=== PATIENT | female | born 1990 | race Caucasian/White ===

== ENCOUNTER 2019-07-09 09:27 | Emergency (ER) | payer SELFPAY ==
[2019-07-09] VITALS (7 sets, daily range): BP systolic 110–121; BP diastolic 77–83; PULSE 61–77; RESP 16–18; TEMP 36.8; O2SAT 98–100; BMI 22.4
--- NOTE | 2019-07-09 09:37 | W.ED.ABDPA2 ---
HPI - Abdominal Pain General: Chief Complaint: Abdominal Pain Stated Complaint: abnormal bruising/swollen abd Time Seen by Provider: 07/09/19 09:32 History of Present Illness: HPI narrative: Patient is a 28-year-old female comes to the ED with abdominal pain and bloating. Patient states that pain started about 2 days ago. She has a decreased appetite in the last 24 hours. She describes it as a dull aching pain that runs like a band across mid to lower abdomen. She rates the discomfort a 6 out of 10. Patient also has a couple small bruises on the abdomen and she is on sure on what caused those. She says her abdomen feels bloated and more firm and tense than usual. She says in the last 2 days she cannot button her pants anymore. Patient says she also has some bruising on her thighs and she describes herself as bruising easily. She patient has had her tubes tied about 5 years ago and has had normal menstrual cycles recently. Denies any excessive bleeding, vaginal discharge or cramping with last menstrual cycle. Last period was a couple weeks ago. She denies any trauma to the abdomen recently. Denies any fever, chills, nausea, vomiting, flank pain, dysuria, hematuria, diarrhea, constipation or blood in stool. Associated Symptoms: Reports bloating and other; Denies chills, constipation, diarrhea, dysuria, fever(s), hematochezia, hematuria, nausea and vomiting Related Data: Date of Last Menstrual Period: 06/25/19 Review of Systems Const: Reports: change in appetite (decreased appetite iin the last 24 hours.); Denies: fever(s), chills or fatigue Eyes: Denies: change in vision or eye discomfort ENMT: Denies: throat pain, odynophagia, nasal discharge or nasal congestion Card: Denies: chest pain, palpitations, edema, swelling of feet/ankles, dyspnea on exertion or orthopnea Resp: Denies: dyspnea, productive cough or non-productive cough GI: Reports: abdominal pain, bloating and other; Denies: nausea, vomiting, diarrhea, constipation or hematochezia : Denies: flank pain, dysuria or hematuria Musc: Denies: neck pain, back pain or extremity swelling Skin/Breast: Denies: rash or new lesions Neuro: Denies: headache(s), numbness in extremities or weakness in extremities PFSH ED PFSH: Social History Smoking and tobacco status: never smoked Female Reproductive History: Date of last menstrual period: 06/25/19 Physical Exam Const: COMMON NORMALS: no acute distress, patient oriented x3, healthy appearing and alert GENERAL APPEARANCE: cooperative, comfortable and well hydrated HENMT: COMMON NORMALS: normocephalic HEAD & SCALP: normocephalic MOUTH: Normal oral and palatal mucosa present THROAT: posterior oropharynx normal and uvula midline Eye: COMMON NORMALS: Equal, round and reactive pupils present, conjunctivae normal and no scleral icterus CONJUNCTIVA: Yes conjunctivae normal PUPIL: Yes Equal, round and reactive pupils present Neck/C-Spine: COMMON NORMALS: supple GENERAL: Yes normal visual inspection Resp: COMMON NORMALS: normal respiratory effort, No retractions, No use of accessory muscles and clear to auscultation bilaterally AUSCULTATION: clear to auscultation bilaterally Cardio: COMMON NORMALS: regular rate, regular rhythm, S1 normal heart sound present, S2 normal heart sound present, No gallops present (Cardio), No clicks present (Cardio), No murmurs present (Cardio) and Peripheral pulses 2+ throughout RATE: regular rate RHYTHM: regular rhythm HEART SOUNDS: S1 normal heart sound present and S2 normal heart sound present PERIPHERAL PULSES: Peripheral pulses 2+ throughout GI: COMMON NORMALS: no masses AUSCULTATION: Yes normoactive bowel sounds PALPATION: Yes Firmness to palpation present (GI) (Firmness on right lower quadrant) and Yes Tenderness to palpation present (GI) (Mild tenderness) Details: LLQ and RLQ : COMMON NORMALS: Yes no CVA tenderness BLADDER/KIDNEY EXAM: Yes no CVA tenderness Back/Pelvis: COMMON NORMALS: no CVA tenderness Extremity: COMMON NORMALS: normal to inspection and no pedal edema Neuro: COMMON NORMALS: patient oriented x3 and moves all extremities SENSORIUM/ORIENTATION: Yes alert GAIT: Yes Normal gait present Skin: GENERAL SKIN EXAM: dry skin and ecchymosis (2 bruises on the upper right arm older almost healed and 2 small bruises on abdomen) Course Vital Signs: Vital signs: Vital Signs Temperature 98.2 F 07/09/19 09:35 Pulse Rate 61 07/09/19 13:36 Respiratory Rate 18 05/30/20 13:36 Blood Pressure 116/83 07/09/19 13:36 Pulse Oximetry 98 07/09/19 13:36 MDM - Abdominal Pain MDM Narrative: Medical decision making narrative: Patient is a 28-year-old female comes to the ED with abdominal pain. Physical exam-patient is a 28-year-old female who is showing no signs of acute distress and sitting comfortably on the exam bilaterally in the room. Patient had some abdominal tenderness in the right and left lower quadrants of the abdomen. CBC, CMP, lipase and urinalysis were all normal and unremarkable. hCG serum test was negative. CT of the abdomen showed no acute findings. Patient was diagnosed with abdominal pain of unknown origin. She was told to follow-up with her PCP in 7 to 10 days for reevaluation. Patient understood and agreed with plan. Lab Data: Attestation: I reviewed the patient's lab results. Labs: Lab Results 07/09/19 07/09/19 07/09/19 Range/Units 10:10 10:14 10:14 WBC 6.0 (4.0-10.0) 10^3/ uL RBC 4.49 (4.1-5.3) 10^6/u L Hgb 12.6 (11.5-15.3) g/dL Hct 40.0 (37.0-47.0) % MCV 89.1 (81-99) fL MCH 28.1 (28.0-34.0) pg MCHC 31.5 (30.0-36.0) g/dL RDW 12.0 L (12.1-15.1) % Plt Count 386 (130-400) 10^3/c mm MPV 9.3 (7.4-10.4) fL Neut % (Auto) 63.8 % Lymph % (Auto) 26.1 % Lander % (Auto) 7.3 % Eos % (Auto) 1.8 % Baso % (Auto) 0.8 % Neut # (Auto) 3.8 (1.8-7.7) 10^3/u L Lymph # (Auto) 1.6 (0.8-4.8) 10^3/u L Lander # (Auto) 0.4 (0.2-0.9) 10^3/u L Eos # (Auto) 0.1 (0.0-0.8) 10^3/u L Baso # (Auto) 0.1 (0.0-0.1) 10^3/u L Nucleated RBC % (a uto) 0 % Nucleated RBCs # 0.0 /100WBC PT (10.5-13.3) SECO NDS INR (0.8-1.2) APTT (23.9-36.7) SECO NDS Sodium 139 (136-145) mmol/L Potassium 3.9 (3.5-5.1) mmol/L Chloride 102 (98-107) mmol/L Carbon Dioxide 26 (22-29) mmol/L Anion Gap 14.9 (5-19) BUN 10 (6-20) mg/dL Creatinine 0.7 (0.5-0.9) mg/dL GFR Calculation 98.9 (90-130) mL/min Glucose 89 (65-115) mg/dL Calculated Osmolal ity 283 L (285-295) mOsm/k g Calcium 9.4 (8.5-10.5) mg/dL Total Bilirubin 0.4 (0.15-1.2) mg/dL AST 17 (0-32) U/L ALT 12 (0-33) U/L Alkaline Phosphata se 59 (35-105) IU/L Total Protein 7.9 (6.6-8.7) g/dL Albumin 5.0 (3.5-5.2) g/dL Globulin 2.9 (1.3-4.6) g/dL Lipase 40 (13-60) U/L HCG, Qual (Negative) Urine Color Yellow (Yellow) Urine Appearance Clear (CLEAR) Urine pH 8 H (5-7) Ur Specific Gravit y 1.010 (1.005-1.030) Urine Protein Neg (Negative) Urine Glucose (UA) Norm (Normal) Urine Ketones Negative (Negative) Urine Blood Neg (Negative) Urine Nitrate Negative (Negative) Urine Bilirubin Neg (NEGATIVE) Prot Sulfosalicyli c Acd Negative (Negative) Urine Urobilinogen Norm (Negative) mg/dL Ur Leukocyte Jami ase Negative (Negative) Urine RBC None (0-2) /hpf Urine WBC None (0-5) /hpf Ur Squamous Epith Cells 15-25 H (0-5) Urine Bacteria Trace (NONE) 07/09/19 07/09/19 Range/Units 10:14 10:14 WBC (4.0-10.0) 10^3/ uL RBC (4.1-5.3) 10^6/u L Hgb (11.5-15.3) g/dL Hct (37.0-47.0) % MCV (81-99) fL MCH (28.0-34.0) pg MCHC (30.0-36.0) g/dL RDW (12.1-15.1) % Plt Count (130-400) 10^3/c mm MPV (7.4-10.4) fL Neut % (Auto) % Lymph % (Auto) % Lander % (Auto) % Eos % (Auto) % Baso % (Auto) % Neut # (Auto) (1.8-7.7) 10^3/u L Lymph # (Auto) (0.8-4.8) 10^3/u L Lander # (Auto) (0.2-0.9) 10^3/u L Eos # (Auto) (0.0-0.8) 10^3/u L Baso # (Auto) (0.0-0.1) 10^3/u L Nucleated RBC % (a uto) % Nucleated RBCs # /100WBC PT 13.90 H (10.5-13.3) SECO NDS INR 1.04 (0.8-1.2) APTT 29.5 (23.9-36.7) SECO NDS Sodium (136-145) mmol/L Potassium (3.5-5.1) mmol/L Chloride (98-107) mmol/L Carbon Dioxide (22-29) mmol/L Anion Gap (5-19) BUN (6-20) mg/dL Creatinine (0.5-0.9) mg/dL GFR Calculation (90-130) mL/min Glucose (65-115) mg/dL Calculated Osmolal ity (285-295) mOsm/k g Calcium (8.5-10.5) mg/dL Total Bilirubin (0.15-1.2) mg/dL AST (0-32) U/L ALT (0-33) U/L Alkaline Phosphata se (35-105) IU/L Total Protein (6.6-8.7) g/dL Albumin (3.5-5.2) g/dL Globulin (1.3-4.6) g/dL Lipase (13-60) U/L HCG, Qual Negative (Negative) Urine Color (Yellow) Urine Appearance (CLEAR) Urine pH (5-7) Ur Specific Gravit y (1.005-1.030) Urine Protein (Negative) Urine Glucose (UA) (Normal) Urine Ketones (Negative) Urine Blood (Negative) Urine Nitrate (Negative) Urine Bilirubin (NEGATIVE) Prot Sulfosalicyli c Acd (Negative) Urine Urobilinogen (Negative) mg/dL Ur Leukocyte Jami ase (Negative) Urine RBC (0-2) /hpf Urine WBC (0-5) /hpf Ur Squamous Epith Cells (0-5) Urine Bacteria (NONE) Imaging Data ^: CT Abd/Pel: Attestation: I personally reviewed and interpreted this imaging study as follows: Radiologist's impression: [place] [id number] CT Scan Report Signed Patient: Sarita Carcamo Unit #: [id number] : 1990 Age/Sex: 28 / F ADM Date: 07/09/19 Loc: ER Room/Bed: Attending Dr: Ordering Provider/Ordering MD: David Chavez Date of Service: 07/09/19 Procedure(s): CT abdomen pelvis w con* [id number] Accession Number(s): [id number] Report Number: [id number] PROCEDURE INFORMATION: Exam: CT Abdomen And Pelvis With Contrast Exam date and time: 07/09/2019 10:49 AM Age: 28 years old Clinical indication: Abdominal pain; Generalized; Additional info: Abdominal pain, decreased appetite TECHNIQUE: Imaging protocol: Computed tomography of the abdomen and pelvis with intravenous contrast. Radiation optimization: All CT scans at this facility use at least one of these dose optimization techniques: automated exposure control; mA and/or kV adjustment per patient size (includes targeted exams where dose is matched to clinical indication); or iterative reconstruction. Contrast material: 95; Contrast volume: 95 ml; Contrast route: RT AC; COMPARISON: CT Abdomen/Pelvis Renal [id number] 09/02/2016 5:27 PM RADIATION DOSE METRICS: Total DLP: 587.26 mGy-cm FINDINGS: Lungs: Trace dependent left basilar airspace disease. Liver: Poorly characterized 9 mm nodular hypodense lesion in the left hepatic lobe, suspicious for hemangioma. Delayed post-contrast imaging can be performed for improved characterization if clinically indicated. Gallbladder and bile ducts: No cholelithiasis or biliary ductal dilatation. Pancreas: No pancreatic mass or ductal dilatation. Spleen: No splenomegaly. Adrenals: Unremarkable adrenals. Kidneys and ureters: Normal renal morphology. No hydronephrosis. Stomach and bowel: No significant small bowel dilatation. Prominent stool. Diverticula, without pericolonic inflammation. Appendix: Nonvisualization of the appendix. Intraperitoneal space: No significant free fluid. Vasculature: Normal caliber of the abdominal aorta. Lymph nodes: Subcentimeter lymph nodes. Bladder: Unremarkable bladder. Reproductive: Follicular change in the ovaries. Bones/joints: Subcentimeter pelvic bone islands. CT/CT abdomen pelvis w con* [id number] IMPRESSION: 1. No acute inflammatory process in the abdomen or pelvis. 2. Additional findings as described above. Radiation Dose CTDIVOL = (mGy): DLP = 587.26 (mGy-cm) Dictated By: Mau Vallejo MD Signed By: Mau Vallejo MD Signed Date/Time: 07/09/19 1235 DD/ 1234 Discharge Plan Discharge Patient Disposition: Home, Self-Care Clinical Impression: Abdominal pain of unknown cause Condition: Stable Prescriptions: No Action No Known Home Medications RF: 0 Discharge Orders: Discharge Order (Routine); Ordered 07/09/19 Ordered By: David Chavez Referrals: Davide Jacob APN [Family Provider] - Discharge Diet: Advance as tolerated Discharge Activity: Increase activity as tolerated Patient Instructions: Abdominal Pain (ED) Activity Restrictions/Additional Instructions: Follow-up with your PCP in 7 to 10 days for reevaluation. Take Tylenol or ibuprofen for any pain. Advance diet as tolerated to see if food has any direct cause in symptoms. Let your PCP know that abdominal CT scan was performed and showed likely benign cyst on liver. Talk with PCP about further possible work-up as needed. Stand Alone Forms: Work/School Release Discharge Date/Time: 07/09/19 13:34 Coding Level of Care Code ED Literary Writer for Chg Fwd Exam Comprehensive
[2019-07-09] MEDS: ondansetron 2 mg/ML SDV 2 mL 4 MG IVP (10:17)
[2019-07-09] MEDS: morphine 4 mg/mL SDV 1 mL 2 MG IVP (10:17)
[2019-07-09] MEDS: sodium chloride 0.9% 1,000 ML 999 ML IV (10:17)
[2019-07-09 10:30] LABS: Basophils # 0.1 10^3/uL (0.0-0.1); Basophils % 0.8 %; Eosinophils # 0.1 10^3/uL (0.0-0.8); Eosinophils % 1.8 %; Hemoglobin 12.6 g/dL (11.5-15.3); Lymphocytes # 1.6 10^3/uL (0.8-4.8); Lymphocytes % 26.1 %; Mean Corpuscular HGB Conc 31.5 g/dL (30.0-36.0); Mean Corpuscular Hemoglobin 28.1 pg (28.0-34.0); Mean Corpuscular Volume 89.1 fL (81-99); Mean Platelet Volume 9.3 fL (7.4-10.4); Monocytes # 0.4 10^3/uL (0.2-0.9); Monocytes % 7.3 %; Neutrophils # 3.8 10^3/uL (1.8-7.7); Neutrophils % 63.8 %; Nucleated Red Blood Cells % 0 %; Platelet Count 386 10^3/cmm (130-400); Red Blood Count 4.49 10^6/uL (4.1-5.3)
[2019-07-09 10:37] LABS: HCG, Serum Qual Negative (Negative); INR 1.04 (0.8-1.2); Partial Thromboplastin Time 29.5 SECONDS (23.9-36.7)
--- NOTE | 2019-07-09 10:44 | CTR_ITS ---
PROCEDURE INFORMATION: Exam: CT Abdomen And Pelvis With Contrast Exam date and time: 07/09/2019 10:49 AM Age: 28 years old Clinical indication: Abdominal pain; Generalized; Additional info: Abdominal pain, decreased appetite TECHNIQUE: Imaging protocol: Computed tomography of the abdomen and pelvis with intravenous contrast. Radiation optimization: All CT scans at this facility use at least one of these dose optimization techniques: automated exposure control; mA and/or kV adjustment per patient size (includes targeted exams where dose is matched to clinical indication); or iterative reconstruction. Contrast material: 95; Contrast volume: 95 ml; Contrast route: RT AC; COMPARISON: CT Abdomen/Pelvis Renal [id number] 09/02/2016 5:27 PM RADIATION DOSE METRICS: Total DLP: 587.26 mGy-cm FINDINGS: Lungs: Trace dependent left basilar airspace disease. Liver: Poorly characterized 9 mm nodular hypodense lesion in the left hepatic lobe, suspicious for hemangioma. Delayed post-contrast imaging can be performed for improved characterization if clinically indicated. Gallbladder and bile ducts: No cholelithiasis or biliary ductal dilatation. Pancreas: No pancreatic mass or ductal dilatation. Spleen: No splenomegaly. Adrenals: Unremarkable adrenals. Kidneys and ureters: Normal renal morphology. No hydronephrosis. Stomach and bowel: No significant small bowel dilatation. Prominent stool. Diverticula, without pericolonic inflammation. Appendix: Nonvisualization of the appendix. Intraperitoneal space: No significant free fluid. Vasculature: Normal caliber of the abdominal aorta. Lymph nodes: Subcentimeter lymph nodes. Bladder: Unremarkable bladder. Reproductive: Follicular change in the ovaries. Bones/joints: Subcentimeter pelvic bone islands. CT/CT abdomen pelvis w con* [id number] IMPRESSION: 1. No acute inflammatory process in the abdomen or pelvis. 2. Additional findings as described above. Radiation Dose CTDIVOL = (mGy): DLP = 587.26 (mGy-cm)
[2019-07-09 10:46] LABS: Alanine Aminotransferase 12 U/L (0-33); Alkaline Phosphatase 59 IU/L (35-105); Anion Gap 14.9 (5-19); Aspartate Amino Transferase 17 U/L (0-32); Blood Urea Nitrogen 10 mg/dL (6-20); Calcium 9.4 mg/dL (8.5-10.5); Carbon Dioxide 26 mmol/L (22-29); Chloride 102 mmol/L (98-107); Globulin 2.9 g/dL (1.3-4.6); Glomerular Filtration Rate 98.9 mL/min (90-130); Glucose 89 mg/dL (65-115); Lipase 40 U/L (13-60); Osmolality Calculated 283 mOsm/kg (285-295); Potassium 3.9 mmol/L (3.5-5.1); Sodium 139 mmol/L (136-145); Total Bilirubin 0.4 mg/dL (0.15-1.2); Total Protein 7.9 g/dL (6.6-8.7)
[2019-07-09 10:54] LABS: Bilirubin Urine Neg (NEGATIVE); Blood Urine Neg (Negative); Glucose Urine UA Norm (Normal); Ketones Urine Negative (Negative); Nitrate Urine Negative (Negative); Protein Urine Neg (Negative); Sulfosalicylic Acid Urine Negative (Negative); Urine Appearance Clear (CLEAR); Urine Color Yellow (Yellow); pH Urine 8 (5-7)
[2019-07-09 10:55] LABS: Leukocyte Esterase Urine Negative (Negative); Urobilinogen Urine Norm (Negative)
[2019-07-09 10:56] LABS: Add Urine Culture? No; Bacteria Urine TRACE; Squamous Epithelial Cell Urine 15-25 (0-5)
[2019-07-09] MEDS: iohexol 300 mg/mL 100 mL Btl IV (11:31)
[2019-07-09] MEDS: morphine 4 mg/mL SDV 1 mL IVP (12:10)
== END 2019-07-09 13:34 | disposition home or self-care (01) ==
PROVIDERS: Emergency Provider Physician Assistant; Family Provider Nurse Practitioner Family
DX: R10.9 Unspecified abdominal pain (principal)
CPT/HCPCS: 12345; 74177; 80053; 81001; 83690; 84703; 85025; 85610; 85730; 96361; 96374; 96375; 96376; 99283; J2270; J2405; J7030; Q9967

== ENCOUNTER → 2019-07-11 16:30 | Outpatient (BNVA) | payer SELFPAY | PROVIDERS: Family Provider Nurse Practitioner Family; Visit Provider Nurse Practitioner Family | DX: R53.83 Other fatigue (principal); R23.8 Other skin changes; R10.9 Unspecified abdominal pain; K76.9 Liver disease, unspecified; E04.9 Nontoxic goiter, unspecified | CPT/HCPCS: 80053; 82306; 82607; 83735; 84439; 84443; 84481; 85025; 85240; 85245; 85246; 86308 ==

== ENCOUNTER 2019-07-12 11:00 | Emergency (ER) | payer SELFPAY ==
[2019-07-12 11:21] VITALS: BP 111/77; PULSE 78; RESP 16; TEMP 36.7; O2SAT 99; BMI 23.3
--- NOTE | 2019-07-12 12:09 | W.ED.ABDPA2 ---
HPI - Abdominal Pain General: Chief Complaint: Abdominal Pain Stated Complaint: LOWER ABD PAIN Time Seen by Provider: 07/12/19 11:47 History of Present Illness: HPI narrative: Was seen in the ED a few days ago for generalized abdominal pain. Discharged home with no definite diagnosis as evaluation was unremarkable. Today, she developed LLQ pain, severe. Unable to walk from the pain. No history of diverticulitis. Has had an jossue MD elicited complaint: abdominal pain Pertinent past history: none Onset (ago): hour(s) (5) Pain Consistency: constant Location: LLQ Severity: severe Quality: stabbing Radiation: none Migration to: no migration Exacerbating factors: nothing Relieving factors: nothing Associated Symptoms: Reports anorexia and nausea; Denies change in bowel habits, chills, dysuria, fever(s), hematochezia, hematemesis and fecal incontinence Related Data: Date of Last Menstrual Period: 06/29/19 Review of Systems General: Reports: 10 or more systems reviewed and unremarkable except in HPI and below Const: Denies: fever(s), chills or body aches ENMT: Denies: throat pain, enlarged tonsils, odynophagia, hoarseness, mouth pain or swelling of lips/tongue Card: Denies: palpitations, irregular heart rhythm, edema or swelling of feet/ankles Resp: Denies: dyspnea, productive cough or non-productive cough GI: Reports: nausea; Denies: hematemesis, fecal incontinence, change in bowel habits or hematochezia : Denies: dysuria Neuro: Denies: headache(s), numbness in extremities or weakness in extremities Endo: Denies: polyuria, polydipsia or tired all the time [facility] ED PFSH: Family History Father Hypertension Social History Smoking and tobacco status: never smoked Female Reproductive History: Date of last menstrual period: 06/29/19 Physical Exam Const: COMMON NORMALS: no acute distress, average body habitus, patient oriented x3, no limitations, healthy appearing, alert and well nourished HENMT: COMMON NORMALS: normocephalic, atraumatic and moist oral mucous membranes HEAD & SCALP: normocephalic and atraumatic Neck/C-Spine: COMMON NORMALS: no meningeal signs and no JVD Chest: COMMONS NORMALS: normal inspection of the chest and normal palpation of entire chest wall Resp: COMMON NORMALS: normal respiratory effort, No retractions, No use of accessory muscles, clear to auscultation bilaterally and percussion normal AUSCULTATION: clear to auscultation bilaterally PERCUSSION: percussion normal Cardio: COMMON NORMALS: no JVD, regular rate, regular rhythm, S1 normal heart sound present, S2 normal heart sound present, No gallops present (Cardio), No clicks present (Cardio), No murmurs present (Cardio), No rub (Cardio) and Peripheral pulses 2+ throughout RATE: regular rate RHYTHM: regular rhythm HEART SOUNDS: S1 normal heart sound present and S2 normal heart sound present PERIPHERAL PULSES: Peripheral pulses 2+ throughout GI: COMMON NORMALS: Normal to inspection, nondistended, normoactive bowel sounds present, Soft to palpation, non-tender, No hepatosplenomegaly present, no masses and no bruits PALPATION: Yes Soft to palpation, Yes Tenderness to palpation present (GI) Details: LLQ and Yes No hepatosplenomegaly present : BLADDER/KIDNEY EXAM: Yes CVA tenderness on the left Back/Pelvis: GENERAL BACK: Yes CVA tenderness Extremity: COMMON NORMALS: normal to inspection, full ROM, capillary refill normal, no calf tenderness and no pedal edema Neuro: COMMON NORMALS: patient oriented x3 SENSORIUM/ORIENTATION: Yes alert MENINGEAL SIGNS: Yes no meningeal signs Skin: COMMON NORMALS: no rashes or lesions noted, no wounds, turgor normal, no jaundice, no petechiae and no mottling GENERAL SKIN EXAM: no rashes or lesions noted and turgor normal Course Reevaluation(s): Reevaluation #1: Discussed her lab and imaging findings with her. She has CT findings of acute diverticulitis. The pain is consistent with diverticulitis, so we will give intravenous antibiotics here in the emergency department and then discharge her home. White cell count is normal, she is no vomiting, so I think she will be okay with oral antibiotics. She voiced understanding and is in agreement with the plan. Time: 15:03 Vital Signs: Vital signs: Vital Signs Temperature 98.1 F 07/12/19 11:21 Pulse Rate 68 07/12/19 17:18 Respiratory Rate 17 07/12/19 17:18 Blood Pressure 118/74 07/12/19 17:18 Pulse Oximetry 98 07/12/19 17:18 MDM - Abdominal Pain MDM Narrative: Medical decision making narrative: 28-year-old female patient with acute diverticulitis. It is uncomplicated. She is discharged home on oral ciprofloxacin and metronidazole. She has no vomiting and no CT scan findings of complications from the diverticulitis. She is advised to return for any concerns especially if her symptoms get worse. Medical Records: Attestation: I reviewed the patient's medical records. Lab Data: Attestation: I reviewed the patient's lab results. Labs: Lab Results 07/12/19 07/12/19 07/12/19 Range/Units 11:47 11:47 12:11 WBC 6.1 (4.0-10.0) 10^3/ uL RBC 4.10 (4.1-5.3) 10^6/u L Hgb 11.9 (11.5-15.3) g/dL Hct 36.8 L (37.0-47.0) % MCV 89.8 (81-99) fL MCH 29.0 (28.0-34.0) pg MCHC 32.3 D (30.0-36.0) g/dL RDW 11.9 L (12.1-15.1) % Plt Count 343 (130-400) 10^3/c mm MPV 9.6 (7.4-10.4) fL Neut % (Auto) 62.9 % Lymph % (Auto) 25.5 % [place] % (Auto) 8.8 % Eos % (Auto) 2.1 % Baso % (Auto) 0.5 % Neut # (Auto) 3.8 (1.8-7.7) 10^3/u L Lymph # (Auto) 1.6 (0.8-4.8) 10^3/u L [place] # (Auto) 0.5 (0.2-0.9) 10^3/u L Eos # (Auto) 0.1 (0.0-0.8) 10^3/u L Baso # (Auto) 0.0 (0.0-0.1) 10^3/u L Nucleated RBC % (a uto) 0 % Nucleated RBCs # 0.0 /100WBC Sodium 138 (136-145) mmol/L Potassium 3.9 (3.5-5.1) mmol/L Chloride 102 (98-107) mmol/L Carbon Dioxide 26 (22-29) mmol/L Anion Gap 13.9 (5-19) BUN 8 (6-20) mg/dL Creatinine 0.7 (0.5-0.9) mg/dL GFR Calculation 98.9 (90-130) mL/min Glucose 100 (65-115) mg/dL Calculated Osmolal ity 282 L (285-295) mOsm/k g Lactate (0.5-2.2) mmol/L Calcium 9.9 (8.5-10.5) mg/dL Total Bilirubin 0.5 (0.15-1.2) mg/dL AST 14 (0-32) U/L ALT 10 (0-33) U/L Alkaline Phosphata se 54 (35-105) IU/L C-Reactive Protein 1.3 (0.0-4.9) mg/L Total Protein 7.7 (6.6-8.7) g/dL Albumin 4.6 (3.5-5.2) g/dL Globulin 3.1 (1.3-4.6) g/dL Lipase 30 (13-60) U/L HCG, Qual Negative (Negative) Urine Color (Yellow) Urine Appearance (CLEAR) Urine pH (5-7) Ur Specific Gravit y (1.005-1.030) Urine Protein (Negative) Urine Glucose (UA) (Normal) Urine Ketones (Negative) Urine Blood (Negative) Urine Nitrate (Negative) Urine Bilirubin (NEGATIVE) Urine Urobilinogen (Negative) mg/dL Ur Leukocyte Jami ase (Negative) Urine Opiates Scre en (Negative) ng/mL Ur Barbiturates Sc reen (Negative) ng/mL Ur Phencyclidine S crn (Negative) ng/mL Ur Amphetamines Sc reen (Negative) ng/mL U Benzodiazepines Scrn (Negative) ng/mL Urine Cocaine Scre en (Negative) ng/mL U Marijuana (THC) Screen (Negative) ng/mL 07/12/19 07/12/19 07/12/19 Range/Units 12:11 12:11 12:30 WBC (4.0-10.0) 10^3/ uL RBC (4.1-5.3) 10^6/u L Hgb (11.5-15.3) g/dL Hct (37.0-47.0) % MCV (81-99) fL MCH (28.0-34.0) pg MCHC (30.0-36.0) g/dL RDW (12.1-15.1) % Plt Count (130-400) 10^3/c mm MPV (7.4-10.4) fL Neut % (Auto) % Lymph % (Auto) % [place] % (Auto) % Eos % (Auto) % Baso % (Auto) % Neut # (Auto) (1.8-7.7) 10^3/u L Lymph # (Auto) (0.8-4.8) 10^3/u L [place] # (Auto) (0.2-0.9) 10^3/u L Eos # (Auto) (0.0-0.8) 10^3/u L Baso # (Auto) (0.0-0.1) 10^3/u L Nucleated RBC % (a uto) % Nucleated RBCs # /100WBC Sodium (136-145) mmol/L Potassium (3.5-5.1) mmol/L Chloride (98-107) mmol/L Carbon Dioxide (22-29) mmol/L Anion Gap (5-19) BUN (6-20) mg/dL Creatinine (0.5-0.9) mg/dL GFR Calculation (90-130) mL/min Glucose (65-115) mg/dL Calculated Osmolal ity (285-295) mOsm/k g Lactate 0.7 (0.5-2.2) mmol/L Calcium (8.5-10.5) mg/dL Total Bilirubin (0.15-1.2) mg/dL AST (0-32) U/L ALT (0-33) U/L Alkaline Phosphata se (35-105) IU/L C-Reactive Protein (0.0-4.9) mg/L Total Protein (6.6-8.7) g/dL Albumin (3.5-5.2) g/dL Globulin (1.3-4.6) g/dL Lipase (13-60) U/L HCG, Qual (Negative) Urine Color Yellow (Yellow) Urine Appearance Clear (CLEAR) Urine pH 7.0 (5-7) Ur Specific Gravit y 1.005 (1.005-1.030) Urine Protein Neg (Negative) Urine Glucose (UA) Norm (Normal) Urine Ketones Negative (Negative) Urine Blood Neg (Negative) Urine Nitrate Negative (Negative) Urine Bilirubin Neg (NEGATIVE) Urine Urobilinogen Norm (Negative) mg/dL Ur Leukocyte Jami ase Negative (Negative) Urine Opiates Scre en Positive H (Negative) ng/mL Ur Barbiturates Sc reen Negative (Negative) ng/mL Ur Phencyclidine S crn Negative (Negative) ng/mL Ur Amphetamines Sc reen Negative (Negative) ng/mL U Benzodiazepines Scrn Negative (Negative) ng/mL Urine Cocaine Scre en Negative (Negative) ng/mL U Marijuana (THC) Screen Positive H (Negative) ng/mL Imaging Data ^: CT Abd/Pel: Radiologist's impression: [place] [address] CT Scan Report Signed Patient: Sarita Carcamo #: [id number] : 1990Acct#:[id number] Age/Sex: Date: 07[birth year]12[birth year] Loc: ERRoom/Bed: Attending Dr: Ordering Provider/Ordering MD: Rozina Brown MD, [facility] [place] Date of Service: 07/12/19 Procedure(s): CT abdomen pelvis w con* [id number] Accession Number(s): [id number] Report Number: [id number] WS: [id number] CT abdomen pelvis w con* [id number] REASON FOR EXAM: LLQ pain IV CONTRAST ADMINISTERED: Omnipaque 300, 95 cc. TOTAL EXAM DLP: 573.[address] scans at [facility] use at least one of these dose optimization techniques: automated exposure control; mA and/or kV adjustment per patient size (includes targeted exams where dose is matched to clinical indication); or iterative reconstruction. FINDINGS: Along the descending: There is diverticular changes with low-grade inflammatory changes suggesting diverticulitis versus panniculitis no free fluid is seen surrounding this area only peritoneal swelling is noted. In the pelvis there is follicular cyst in both ovaries but no large dominant cyst. The uterus is upper limits of normal for size. The bladder was normal and the rectosigmoid colon normal. In the upper abdomen the liver was normal the lower lungs normal and the mediastinum show no abnormalities. There is a benign cyst in the left lobe of the liver measures 9.41 mm. Stomach, spleen, aorta, inferior vena cava, and adrenal glands are all normal. The gallbladder is somewhat contracted but appears to be normal. Both kidneys show normal appearance with normal ureters no hydronephrosis no new cholelithiasis. CT/CT abdomen pelvis w con* [id number] IMPRESSION: Diverticulitis of the mid descending colon no abscess changes. Dictated By:Cole Cottrell DO Signed By:Cole Cottrell DOSigned Date/Time:07/12/19 1432 DD/ 1425 Discharge Plan Discharge Patient Disposition: Home, Self-Care Clinical Impression: Acute diverticulitis Condition: Stable Prescriptions: New ciprofloxacin HCl 500 mg tablet 500 mg PO BID Qty: 14 RF: 0 Flagyl 500 mg tablet 500 mg PO TID Qty: 21 RF: 0 [place] 5-325 mg tablet 1 tab PO Q8H PRN (Reason: pain) Qty: 12 RF: 0 Discharge Orders: Discharge Order (Routine); Ordered 07/12/19 Ordered By: Rozina Brown Referrals: Davide Jacob, VETERINARIAN EPIDEMIOLOGIST [Primary Care Provider] - 4-7 days Discharge Diet: Advance as tolerated Discharge Activity: Resume usual activity Patient Instructions: Diverticulitis (ED), Diverticulitis Diet (ED) Activity Restrictions/Additional Instructions: Return for any new or worsening symptoms. Follow-up with your primary care provider within 1 week. Take the antibiotics as prescribed. Take the pain medicine as needed. 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
[2019-07-12 12:31] LABS: Add Urine Microscopic? NO
[2019-07-12 12:32] LABS: Basophils % 0.5 %; Eosinophils # 0.1 10^3/uL (0.0-0.8); Eosinophils % 2.1 %; Hematocrit 36.8 % (37.0-47.0); Hemoglobin 11.9 g/dL (11.5-15.3); Lymphocytes # 1.6 10^3/uL (0.8-4.8); Lymphocytes % 25.5 %; Mean Corpuscular HGB Conc 32.3 g/dL (30.0-36.0); Mean Corpuscular Volume 89.8 fL (81-99); Mean Platelet Volume 9.6 fL (7.4-10.4); Monocytes # 0.5 10^3/uL (0.2-0.9); Monocytes % 8.8 %; Neutrophils # 3.8 10^3/uL (1.8-7.7); Neutrophils % 62.9 %; Nucleated Red Blood Cells % 0 %; Platelet Count 343 10^3/cmm (130-400); Red Cell Distribution Width 11.9 % (12.1-15.1); White Blood Count 6.1 10^3/uL (4.0-10.0)
[2019-07-12 12:37] LABS: Bilirubin Urine Neg (NEGATIVE); Blood Urine Neg (Negative); Glucose Urine UA Norm (Normal); Ketones Urine Negative (Negative); Leukocyte Esterase Urine Negative (Negative); Nitrate Urine Negative (Negative); Protein Urine Neg (Negative); Specific Gravity, Urine 1.005 (1.005-1.030); Urine Appearance Clear (CLEAR); Urine Color Yellow (Yellow); Urobilinogen Urine Norm (Negative)
[2019-07-12 12:39] LABS: HCG Qualitative Urine. Negative (Negative)
[2019-07-12 12:40] LABS: Alanine Aminotransferase 10 U/L (0-33); Albumin Level 4.6 g/dL (3.5-5.2); Alkaline Phosphatase 54 IU/L (35-105); Anion Gap 13.9 (5-19); Aspartate Amino Transferase 14 U/L (0-32); Blood Urea Nitrogen 8 mg/dL (6-20); C Reactive Protein 1.3 mg/L (0.0-4.9); Calcium 9.9 mg/dL (8.5-10.5); Carbon Dioxide 26 mmol/L (22-29); Chloride 102 mmol/L (98-107); Globulin 3.1 g/dL (1.3-4.6); Glomerular Filtration Rate 98.9 mL/min (90-130); Glucose 100 mg/dL (65-115); Lipase 30 U/L (13-60); Osmolality Calculated 282 mOsm/kg (285-295); Potassium 3.9 mmol/L (3.5-5.1); Sodium 138 mmol/L (136-145); Total Bilirubin 0.5 mg/dL (0.15-1.2); Total Protein 7.7 g/dL (6.6-8.7)
[2019-07-12 12:45] LABS: Amphetamines Screen Urine Negative (Negative); Barbiturates Screen Urine Negative (Negative); Benzodiazepines Screen Urine Negative (Negative); Cocaine Screen Urine Negative (Negative); Opiate Screen Urine Positive (Negative); PCP Screen Urine Negative (Negative); THC Screen Urine Positive (Negative)
[2019-07-12 12:55] LABS: Lactate (Lactic Acid level) 0.7 mmol/L (0.5-2.2)
[2019-07-12] MEDS: ketorolac 30 mg/mL INJ IVP (13:11)
--- NOTE | 2019-07-12 13:22 | CT_ITS ---
WS: [id number] CT abdomen pelvis w con* [id number] REASON FOR EXAM: LLQ pain IV CONTRAST ADMINISTERED: Omnipaque 300, 95 cc. TOTAL EXAM DLP: 573.[address] scans at [facility] use at least one of these dose optimization techniques: automat ed exposure control; mA and/or kV adjustment per patient size (includes targeted exams where dose is matched to clinical indication); or iterative reconstruction. FINDINGS: Along the descending: There is diverticular changes with low-grade inflammatory changes sug gesting diverticulitis versus panniculitis no free fluid is seen surrounding this area only peritonea l swelling is noted. In the pelvis there is follicular cyst in both ovaries but no large dominant cyst. The uterus is uppe r limits of normal for size. The bladder was normal and the rectosigmoid colon normal. In the upper abdomen the liver was normal the lower lungs normal and the mediastinum show no abnormal ities. There is a benign cyst in the left lobe of the liver measures 9.41 mm. Stomach, spleen, aorta, inferior vena cava, and adrenal glands are all normal. The gallbladder is somewhat contracted but appears to be normal. Both kidneys show normal appearance with normal ureters no hydronephrosis no new cholelithiasis. CT/CT abdomen pelvis w con* [id number] IMPRESSION: Diverticulitis of the mid descending colon no abscess changes.
[2019-07-12] MEDS: iohexol 300 mg/mL 100 mL Btl IV (14:15)
[2019-07-12] MEDS: ciprofloxacin 400 MG/200 ML PREMIX 200 MG IV (15:55)
[2019-07-12 15:57] VITALS: RESP 18; O2SAT 98
[2019-07-12] MEDS: morphine 4 mg/mL SDV 1 mL IVP (15:57)
[2019-07-12 17:18] VITALS: BP 118/74; PULSE 68; RESP 17; O2SAT 98
== END 2019-07-12 17:21 | disposition home or self-care (01) ==
PROVIDERS: Emergency Provider Family Medicine; PCP Nurse Practitioner Family
DX: K57.92 Diverticulitis of intestine, part unspecified, without perforation or abscess without bleeding (principal)
CPT/HCPCS: 12345; 36415; 74177; 80053; 80306; 81003; 81025; 83605; 83690; 85025; 86140; 96365; 96375; 99283; J0744; J1885; J2270; Q9967

== ENCOUNTER 2019-07-15 11:36 | Outpatient (CLI) | payer SELFPAY ==
--- NOTE | 2019-07-15 12:45 | US_ITS ---
WS: [id number] RIGHT UPPER QUADRANT ULTRASOUND HISTORY: spot on liver COMPARISON: CT abdomen 07/12/2019 TECHNIQUE: 2-D and Doppler imaging performed. Liver: 13.7 cm in length. Normal size and echogenicity with no intrahepatic dilatation or mass. Previ ously described cyst in the LEFT lobe of the liver is not definitely identified. Portal vein: Normal monophasic flow. Pancreas: Negative. Gallbladder:Normally distended with no cholelithiasis or gallbladder wall thickening. Common bile duct: 3.0 mm. Right kidney:10.4 cm in length. No hydronephrosis, mass or cortical thickening. Visualized portions of the IVC and aorta are normal. No ascites. US/US liver [id number] IMPRESSION: Normal right upper quadrant ultrasound. Recently described cyst in the LEFT lob e of liver is not identified by ultrasound. Probably due to its small size.
--- NOTE | 2019-07-15 13:30 | US_ITS ---
WS: [id number] THYROID ULTRASOUND HISTORY: enlarged thyroid COMPARISON: None available. Right lobe: 5.3 cm x 2.1 cm x 2.0 cm. Volume: 11.7 cm3. Slightly enlarged thyroid. No increased vascularity. Hypoechoic nodule in the inferior thyroid measur es 4 x 3 x 3 mm. Left lobe: 5.5 cm x 1.9 cm x 1.4 cm. Volume: 7.7 cm3. Minimally enlarged thyroid. There is a small cyst upper pole measuring 3 x 2 x 3 mm. No suspicious ma ss. Isthmus: 0.4 cm. US/US thyroid [id number] IMPRESSION: Mildly enlarged thyroid. No suspicious masses or nodules.
== END 2019-07-15 11:37 | disposition home or self-care (01) ==
LOC: RAD 11:40
PROVIDERS: PCP Nurse Practitioner Family; Visit Provider Nurse Practitioner Family
DX: E04.9 Nontoxic goiter, unspecified (principal); K76.9 Liver disease, unspecified
CPT/HCPCS: 76536; 76705

== ENCOUNTER 2020-06-02 13:09 | Emergency (ER) | payer SELFPAY ==
[2020-06-02 13:35] VITALS: BP 109/71; PULSE 103; RESP 16; TEMP 36.5; O2SAT 97; BMI 20.7
--- NOTE | 2020-06-02 14:08 | ED_ITS ---
HPI - Abdominal Pain General: Chief Complaint: Abdominal Pain Stated Complaint: AB PAIN, VOMITING Time Seen by Provider: 06/02/20 13:57 Source: patient Mode of arrival: ambulatory Limitations: no limitations History of Present Illness: HPI narrative: Patient is a 29-year-old female with a history of diverticulitis presents to the emergency department with lower abdominal pain that started suddenly this morning. Pain is worst in the left lower quadrant and right lower quadrant with associated nausea and vomiting. She denies any fever, denies any urinary symptoms. She has had a bilateral tubal ligation so it is unlikely that she is at this time. She started her menstrual period today. MD elicited complaint: abdominal pain Pertinent past history: diverticulitis Onset (ago): hour(s) Pain Consistency: constant Location: RLQ, LLQ and Suprapubic Severity: severe Quality: cramping Radiation: none Migration to: no migration Exacerbating factors: nothing Relieving factors: nothing Associated Symptoms: Reports nausea and vomiting; Denies anorexia, belching, bloating, change in bowel habits, change in stool character, chills, coffee ground emesis, constipation, GI cramping, diarrhea, dyspepsia, dysuria, excessive flatus, fever(s), heartburn, hematochezia, hematuria, hematemesis, fecal incontinence, loose stools, melena, poor appetite and syncope Related Data: Date of Last Menstrual Period: 06/02/20 Review of Systems General: Reports: 10 or more systems reviewed and unremarkable except in HPI and below Const: Denies: fever(s) or chills Card: Denies: syncope GI: Reports: nausea and vomiting; Denies: hematemesis, coffee ground emesis, heartburn, diarrhea, constipation, bloating, GI cramping, belching, excessive flatus, fecal incontinence, change in bowel habits, change in stool character, hematochezia or melena : Denies: dysuria or hematuria PFSH ED PFSH: Family History (Reviewed 06/02/20 @ 14:11 by Rozina Brown MD, [facility] [place]) Father Hypertension Social History (Reviewed 06/02/20 @ 14:11 by Rozina Brown MD, [facility] [place]) Smoking and tobacco status: never smoked Alcohol intake: current Alcohol intake frequency: holidays/special occasions only Alcohol type: wine Substance/Drug Use: current Substance/Drug use frequency: daily Substance/Drug use type: Marijuana Female Reproductive History: Date of last menstrual period: 06/02/20 Physical Exam Const: COMMON NORMALS: average body habitus, patient oriented x3, no limitations, healthy appearing, alert and well nourished GENERAL APPEARANCE: in distress (painful) HENMT: COMMON NORMALS: normocephalic, atraumatic and moist oral mucous membranes HEAD & SCALP: normocephalic and atraumatic Neck/C-Spine: COMMON NORMALS: no meningeal signs and no JVD Resp: COMMON NORMALS: normal respiratory effort, No retractions, No use of accessory muscles, clear to auscultation bilaterally and percussion normal AUSCULTATION: clear to auscultation bilaterally PERCUSSION: percussion normal Cardio: COMMON NORMALS: no JVD, regular rate, regular rhythm, S1 normal heart sound present, S2 normal heart sound present, No gallops present (Cardio), No clicks present (Cardio), No murmurs present (Cardio), No rub (Cardio) and Peripheral pulses 2+ throughout RATE: regular rate RHYTHM: regular rhythm HEART SOUNDS: S1 normal heart sound present and S2 normal heart sound present PERIPHERAL PULSES: Peripheral pulses 2+ throughout GI: COMMON NORMALS: Normal to inspection, nondistended, normoactive bowel sounds present, Soft to palpation, non-tender, No hepatosplenomegaly present, no masses and no bruits PALPATION: Yes Soft to palpation, Yes Tenderness to palpation present (GI) (suprapubic. Most in the LLQ) Details: LLQ and RLQ, No Guarding due to palpation present (GI), No Rigid due to palpation, Yes No hepatosplenomegaly present and No Rebound tenderness present Extremity: COMMON NORMALS: normal to inspection, full ROM, capillary refill normal, no calf tenderness and no pedal edema Neuro: COMMON NORMALS: patient oriented x3 SENSORIUM/ORIENTATION: Yes alert MENINGEAL SIGNS: Yes no meningeal signs Course Reevaluation(s): Reevaluation #1: Discussed her lab and imaging findings with her. Evaluation is consistent with a UTI. She was given a of ceftriaxone in the emergency department and discharged home with a prescription for Bactrim. She is advised to drink plenty fluids to keep well-hydrated. She voiced understanding and is in agreement with the plan. Time: 17:44 Vital Signs: Vital signs: Vital Signs Temperature 97.7 F 06/02/20 13:35 Pulse Rate 78 06/02/20 14:38 Respiratory Rate 18 06/02/20 17:51 Blood Pressure 107/72 06/02/20 17:51 Pulse Oximetry 100 06/02/20 17:51 MDM - Abdominal Pain MDM Narrative: Medical decision making narrative: 29-year-old female who presented to the emergency department with lower abdominal pain. She has had a previous history of diverticulitis and thought this may be a recurrence. Evaluation in the emergency department however is consistent with a urinary tract infection but no suggestion of pyelonephritis. She is discharged home with a prescription for Bactrim and was given a dose of ceftriaxone in the emergency department. Her pain resolved prior to discharge Medical Records: Attestation: I reviewed the patient's medical records. Lab Data: Attestation: I reviewed the patient's lab results. Labs: Lab Results 06/02/20 06/02/20 06/02/20 Range/Units 14:15 14:15 14:15 WBC 12.8 H (4.0-10.0) 10^3/ uL RBC 4.17 (4.1-5.3) 10^6/u L Hgb 12.2 (11.5-15.3) g/dL Hct 37.7 (37.0-47.0) % MCV 90.4 (81-99) fL MCH 29.3 (28.0-34.0) pg MCHC 32.4 (30.0-36.0) g/dL RDW 12.4 (12.1-15.1) % Plt Count 348 (130-400) 10^3/c mm MPV 9.9 (7.4-10.4) fL Neut % (Auto) 78.6 % Lymph % (Auto) 12.1 % [place] % (Auto) 7.2 % Eos % (Auto) 1.6 % Baso % (Auto) 0.3 % Neut # (Auto) 10.08 H (1.8-7.7) 10^3/u L Lymph # (Auto) 1.6 (0.8-4.8) 10^3/u L [place] # (Auto) 0.9 (0.2-0.9) 10^3/u L Eos # (Auto) 0.2 (0.0-0.8) 10^3/u L Baso # (Auto) 0.0 (0.0-0.1) 10^3/u L Nucleated RBC % (a uto) 0 % Nucleated RBCs # 0.0 /100WBC Sodium 139 (136-145) mmol/L Potassium 3.8 (3.5-5.1) mmol/L Chloride 103 (98-107) mmol/L Carbon Dioxide 27 (22-29) mmol/L Anion Gap 12.8 (5-19) BUN 8 (6-20) mg/dL Creatinine 0.6 (0.5-0.9) mg/dL GFR Calculation 117.4 (90-130) mL/min Glucose 75 (65-115) mg/dL Calculated Osmolal ity 285 (285-295) mOsm/k g Lactate 0.8 (0.5-2.2) mmol/L Calcium 8.9 (8.5-10.5) mg/dL Total Bilirubin 0.4 (0.15-1.2) mg/dL AST 11 (0-32) U/L ALT 8 (0-33) U/L Alkaline Phosphata se 55 (35-105) IU/L C-Reactive Protein 1.5 (0.0-4.9) mg/L Total Protein 7.3 (6.6-8.7) g/dL Albumin 4.6 (3.5-5.2) g/dL Globulin 2.7 (1.3-4.6) g/dL Lipase 30 (13-60) U/L HCG, Qual (Negative) Urine Color (Yellow) Urine Appearance (CLEAR) Urine pH (5-7) Ur Specific Gravit y (1.005-1.030) Urine Protein (Negative) Urine Glucose (UA) (Normal) Urine Ketones (Negative) Urine Blood (Negative) Urine Nitrate (Negative) Urine Bilirubin (Negative) Prot Sulfosalicyli c Acd (Negative) Urine Urobilinogen (Negative) mg/dL Ur Leukocyte Jami ase (Negative) Urine RBC (0-2) /hpf Urine WBC (0-5) /hpf Ur Squamous Epith Cells (0-5) /hpf Amorphous Sediment Urine Bacteria (NONE) /hpf 06/02/20 06/02/20 Range/Units 14:15 14:15 WBC (4.0-10.0) 10^3/ uL RBC (4.1-5.3) 10^6/u L Hgb (11.5-15.3) g/dL Hct (37.0-47.0) % MCV (81-99) fL MCH (28.0-34.0) pg MCHC (30.0-36.0) g/dL RDW (12.1-15.1) % Plt Count (130-400) 10^3/c mm MPV (7.4-10.4) fL Neut % (Auto) % Lymph % (Auto) % [place] % (Auto) % Eos % (Auto) % Baso % (Auto) % Neut # (Auto) (1.8-7.7) 10^3/u L Lymph # (Auto) (0.8-4.8) 10^3/u L [place] # (Auto) (0.2-0.9) 10^3/u L Eos # (Auto) (0.0-0.8) 10^3/u L Baso # (Auto) (0.0-0.1) 10^3/u L Nucleated RBC % (a uto) % Nucleated RBCs # /100WBC Sodium (136-145) mmol/L Potassium (3.5-5.1) mmol/L Chloride (98-107) mmol/L Carbon Dioxide (22-29) mmol/L Anion Gap (5-19) BUN (6-20) mg/dL Creatinine (0.5-0.9) mg/dL GFR Calculation (90-130) mL/min Glucose (65-115) mg/dL Calculated Osmolal ity (285-295) mOsm/k g Lactate (0.5-2.2) mmol/L Calcium (8.5-10.5) mg/dL Total Bilirubin (0.15-1.2) mg/dL AST (0-32) U/L ALT (0-33) U/L Alkaline Phosphata se (35-105) IU/L C-Reactive Protein (0.0-4.9) mg/L Total Protein (6.6-8.7) g/dL Albumin (3.5-5.2) g/dL Globulin (1.3-4.6) g/dL Lipase (13-60) U/L HCG, Qual Negative (Negative) Urine Color Red (Yellow) Urine Appearance Hazy A (CLEAR) Urine pH 8 H (5-7) Ur Specific Gravit y 1.015 (1.005-1.030) Urine Protein Trace (Negative) Urine Glucose (UA) Norm (Normal) Urine Ketones Negative (Negative) Urine Blood 3+ H (Negative) Urine Nitrate Negative (Negative) Urine Bilirubin Neg (Negative) Prot Sulfosalicyli c Acd Positive (Negative) Urine Urobilinogen 1 H (Negative) mg/dL Ur Leukocyte Jami ase Trace H (Negative) Urine RBC >100 H (0-2) /hpf Urine WBC 15-25 H (0-5) /hpf Ur Squamous Epith Cells 0-4 H (0-5) /hpf Amorphous Sediment Not Reportable Urine Bacteria 1+ H (NONE) /hpf Imaging Data ^: CT Abd/Pel: Attestation: I personally reviewed and interpreted this imaging study as follows: Radiologist's impression: [address] [id number] [address] Scan Report Signed Patient: Sarita Carcamo #: [id number] : 1990Acct#:[id number] Age/Sex: 29 FADM Date: 06/02/20 Loc: [facility]/Bed: Attending Dr: Ordering Provider/Ordering MD: Rozina Brown MD, [facility] [place] Date of Service: 06/02/20 Procedure(s): CT abdomen pelvis w con* [id number] Accession Number(s): [id number] Report Number: [id number] PROCEDURE INFORMATION: Exam: CT Abdomen And Pelvis With Contrast Exam date and time: 06/02/2020 3:49 PM Age: 29 years old Clinical indication: Abdominal pain; Localized; Prior surgery; Surgery date: 6+ months; Surgery type: C-sect; Patient HX: C/O lower abd/pelvic pain w HX of diverticulitis; Additional info: Llq pain, rlq pain, h/o diverticulitis TECHNIQUE: Imaging protocol: Computed tomography of the abdomen and pelvis with contrast. Radiation optimization: All CT scans at this facility use at least one of these dose optimization techniques: automated exposure control; mA and/or kV adjustment per patient size (includes targeted exams where dose is matched to clinical indication); or iterative reconstruction. Contrast material: OMNI 300; Contrast volume: 95 ml; Contrast route: INTRAVENOUS (IV); COMPARISON: CT abdomen pelvis w con* [id number] 07/12/2019 2:02 PM RADIATION DOSE METRICS: Total DLP (mGy-cm): 1089.19 FINDINGS: Liver: Circumscribed low-density lesion superior left hepatic lobe with intermediate Hounsfield units measures about 11 mm transverse diameter. No significant change from prior. Gallbladder and bile ducts: Normal. No calcified stones. No ductal dilation. Pancreas: Normal. No ductal dilation. Spleen: Normal. No splenomegaly. Adrenal glands: Normal. No mass. Kidneys and ureters: Normal. No hydronephrosis. Stomach and bowel: Unremarkable. No obstruction. No mucosal thickening. Appendix: No evidence of appendicitis. Intraperitoneal space: Trace pelvic free fluid with simple appearance. No loculated abdominopelvic fluid collection. No free air. Vasculature: Unremarkable. No abdominal aortic aneurysm. Lymph nodes: Unremarkable. No enlarged lymph nodes. Urinary bladder: Unremarkable as visualized. Reproductive: Unremarkable as visualized. Bones/joints: Unremarkable. No acute fracture. Soft tissues: Unremarkable abdominal wall. CT/CT abdomen pelvis w con* [id number] IMPRESSION: 1. Negative for acute pathology in the abdomen or pelvis. 2. No significant changes from comparison. Radiation Dose CTDIVOL = (mGy): DLP = 1089.19 (mGy-cm) Dictated By:Brian Noel Signed By:Waqas Noel Date/Time:06/02/201629 DD/ 1628 Discharge Plan Discharge Patient Disposition: Home Clinical Impression: UTI (urinary tract infection) Qualifiers: Urinary tract infection type: acute cystitis Hematuria presence: with hematuria Qualified Code(s): N30.01 - Acute cystitis with hematuria Condition: Stable Prescriptions: New Bactrim DS 800-160 mg tablet 1 tab PO DAILY 7 Days Qty: 14 RF: 0 Continued Herbalife Total Control 1 tab PO DAILY PRN (Reason: UNKNOWN) RF: 0 Discharge Orders: Discharge ED (Routine); Ordered 06/02/20 Ordered By: Rozina Brown Discharge Diet: Usual diet Discharge Activity: Increase activity as tolerated Patient Instructions: Urinary Tract Infection in Women (ED) Activity Restrictions/Additional Instructions: Return for any new or worsening symptoms. Follow up with your primary care provider within 3 days. Take the antibiotic as prescribed. Drink plenty of fluids to keep well hydrated. Coding Level of Care Code ED Polyethylene Bag Machine Operator for Jt Fwd Exam Detailed
[2020-06-02] MEDS: ondansetron 2 mg/ML SDV 2 mL 4 MG IVP (14:14)
[2020-06-02] MEDS: morphine 4 mg/mL SDV 1 mL IVP (14:14)
[2020-06-02 14:38] VITALS: BP 102/62; PULSE 78; RESP 18; O2SAT 99
[2020-06-02 15:02] LABS: Specific Gravity, Urine 1.015 (1.005-1.030); Urine Appearance Hazy (CLEAR); Urine Color Red (Yellow); pH Urine 8 (5-7)
[2020-06-02 15:03] LABS: Add Urine Culture? Yes; Add Urine Microscopic? YES; Bacteria Urine 1+ /hpf; Bilirubin Urine Neg (Negative); Blood Urine 3+ (Negative); Glucose Urine UA Norm (Normal); Ketones Urine Negative (Negative); Leukocyte Esterase Urine Trace (Negative); Nitrate Urine Negative (Negative); Protein Urine Trace (Negative); RBC Urine >100 /hpf (0-2); Squamous Epithelial Cell Urine 0-4 /hpf (0-5); Sulfosalicylic Acid Urine Positive (Negative); Urobilinogen Urine 1 mg/dL (Negative); WBC Urine 15-25 /hpf (0-5)
[2020-06-02 15:09] LABS: Basophils % 0.3 %; Eosinophils # 0.2 10^3/uL (0.0-0.8); Eosinophils % 1.6 %; Hematocrit 37.7 % (37.0-47.0); Hemoglobin 12.2 g/dL (11.5-15.3); Lymphocytes # 1.6 10^3/uL (0.8-4.8); Lymphocytes % 12.1 %; Mean Corpuscular HGB Conc 32.4 g/dL (30.0-36.0); Mean Corpuscular Hemoglobin 29.3 pg (28.0-34.0); Mean Corpuscular Volume 90.4 fL (81-99); Mean Platelet Volume 9.9 fL (7.4-10.4); Monocytes # 0.9 10^3/uL (0.2-0.9); Monocytes % 7.2 %; Neutrophils # 10.08 10^3/uL (1.8-7.7); Neutrophils % 78.6 %; Nucleated Red Blood Cells % 0 %; Platelet Count 348 10^3/cmm (130-400); Red Blood Count 4.17 10^6/uL (4.1-5.3); Red Cell Distribution Width 12.4 % (12.1-15.1); White Blood Count 12.8 10^3/uL (4.0-10.0)
[2020-06-02 15:24] LABS: Alanine Aminotransferase 8 U/L (0-33); Albumin Level 4.6 g/dL (3.5-5.2); Alkaline Phosphatase 55 IU/L (35-105); Anion Gap 12.8 (5-19); Aspartate Amino Transferase 11 U/L (0-32); Blood Urea Nitrogen 8 mg/dL (6-20); C Reactive Protein 1.5 mg/L (0.0-4.9); Calcium 8.9 mg/dL (8.5-10.5); Carbon Dioxide 27 mmol/L (22-29); Chloride 103 mmol/L (98-107); Globulin 2.7 g/dL (1.3-4.6); Glomerular Filtration Rate 117.4 mL/min (90-130); Glucose 75 mg/dL (65-115); Lactate (Lactic Acid level) 0.8 mmol/L (0.5-2.2); Lipase 30 U/L (13-60); Osmolality Calculated 285 mOsm/kg (285-295); Potassium 3.8 mmol/L (3.5-5.1); Sodium 139 mmol/L (136-145); Total Bilirubin 0.4 mg/dL (0.15-1.2); Total Protein 7.3 g/dL (6.6-8.7)
[2020-06-02 15:25] LABS: HCG, Serum Qual Negative (Negative)
[2020-06-02 15:38] VITALS: RESP 15
[2020-06-02 16:00] VITALS: RESP 15
[2020-06-02] MEDS: iohexol 300 mg/mL 100 mL Btl IV (16:05)
[2020-06-02] MEDS: fentaNYL 50 mcg/mL INJ 2mL IVP (16:14)
[2020-06-02] MEDS: cefTRIAXone 1,000 MG in sodium chloride 0.9% (plus) 50 ML 100 MG IV (16:23)
[2020-06-02 17:00] VITALS: BP 107/72; RESP 18; O2SAT 100
[2020-06-02 17:51] VITALS: BP 107/72; RESP 18; O2SAT 100
== END 2020-06-02 17:51 | disposition home or self-care (01) ==
PROVIDERS: Emergency Provider Family Medicine
DX: N30.01 Acute cystitis with hematuria (principal)
CPT/HCPCS: 74177; 80053; 81001; 83605; 83690; 84703; 85025; 86140; 87086; 96365; 96375; 99284; J0696; J2270; J2405; J3010; Q9967

== ENCOUNTER 2020-07-16 10:34 | Emergency (ER) | payer SELFPAY ==
[2020-07-16 10:58] VITALS: BP 104/70; PULSE 77; RESP 18; TEMP 36.4; O2SAT 97; BMI 25.0
--- NOTE | 2020-07-16 12:10 | W.ED.GENADLT ---
HPI - General Adult General: Chief complaint: Vaginal Bleeding Stated complaint: poss miscarrige Time Seen by Provider: 07/16/20 12:06 History of Present Illness: HPI narrative: This patient is a 29-year-old female that is a G2, P2 who has had her tubes tied in the past presents to the emergency department for lower pelvic pain. Patient states that she has not had a period since 10 May. Patient states that she went to the bathroom this morning and was having significant cramping in the pelvic area and stayed in the bathtub for some time. Patient states she got up to go the bathroom and had a little bit of spotting bleeding and passed a larger clot. Patient states she has never had anything like this before. Patient states after passing the clot she has felt better on the cramping but now just feels a bit more pelvic pressure. Will do medical evaluation treat as needed Onset (ago): hour(s) Location: pelvis and genitals Quality: aching Pain Consistency: intermittent Exacerbating factors: none Associated symptoms: Deny chest pain, dyspnea, headache(s), nausea, rash, palpitations or vomiting Review of Systems General: Reports: 10 or more systems reviewed and unremarkable except in HPI and below Const: Denies: fever(s), chills, body aches or fatigue Eyes: Denies: change in vision or blurry vision ENMT: Denies: throat pain, hoarseness or mouth pain Card: Denies: chest pain, palpitations, irregular heart rhythm, edema, swelling of feet/ankles or lightheadedness Resp: Denies: dyspnea, productive cough, non-productive cough, wheezing or pain on inspiration GI: Denies: abdominal pain, nausea or vomiting : Reports: vaginal bleeding, dysmenorrhea, irregular period and pelvic pain; Denies: flank pain, difficulty voiding, dysuria, urinary frequency, urinary urgency or urinary hesitancy Musc: Denies: neck pain, back pain, extremity pain, extremity swelling, joint pain, joint swelling, joint redness, joint warmth or limited range of motion Skin/Breast: Denies: rash, pruritus, erythema or skin tenderness Neuro: Denies: headache(s), numbness in extremities or weakness in extremities Psych: Denies: anxiety or depression PFS ED PFSH: Family History Father Hypertension Social History Smoking and tobacco status: never smoked Alcohol intake: current Alcohol intake frequency: holidays/special occasions only Alcohol type: wine Female Reproductive History: Date of last menstrual period: 06/02/20 Physical Exam Const: COMMON NORMALS: no acute distress, average body habitus, patient oriented x3, no limitations, healthy appearing, alert and well nourished HENMT: COMMON NORMALS: normocephalic, atraumatic, hearing grossly normal bilaterally, external ears normal, EAC's normal, TM's normal bilaterally, Normal external nose present, Normal nasal mucous membranes and turbinates present, moist oral mucous membranes, oropharynx normal, dentition normal and gingiva normal HEAD & SCALP: normocephalic and atraumatic NOSE: Normal external nose present and Normal nasal mucous membranes and turbinates present EXTERNAL EAR: Yes external ears normal EXTERNAL AUDITORY CANAL: EAC's normal TYMPANIC MEMBRANE: TM's normal bilaterally Neck/C-Spine: COMMON NORMALS: full ROM, no lymphadenopathy, supple, no meningeal signs, no JVD, Thyroid normal and No carotid bruits THYROID: Thyroid normal Chest: COMMONS NORMALS: normal inspection of the chest, normal palpation of entire chest wall, normal inspection of the breasts and normal palpation of the breasts Breast/axilla inspection: Yes normal inspection of the breasts BREAST/AXILLA PALPATION: Yes normal palpation of the breasts Resp: COMMON NORMALS: normal respiratory effort, No retractions, No use of accessory muscles, clear to auscultation bilaterally and percussion normal AUSCULTATION: clear to auscultation bilaterally PERCUSSION: percussion normal Cardio: COMMON NORMALS: no JVD, regular rate, regular rhythm, S1 normal heart sound present, S2 normal heart sound present, No gallops present (Cardio), No clicks present (Cardio), No murmurs present (Cardio), No rub (Cardio) and Peripheral pulses 2+ throughout RATE: regular rate RHYTHM: regular rhythm HEART SOUNDS: S1 normal heart sound present and S2 normal heart sound present PERIPHERAL PULSES: Peripheral pulses 2+ throughout GI: COMMON NORMALS: Normal to inspection, nondistended, normoactive bowel sounds present, Soft to palpation, non-tender, No hepatosplenomegaly present, no masses and no bruits PALPATION: Yes Soft to palpation and Yes No hepatosplenomegaly present : COMMON NORMALS: Yes no CVA tenderness, Yes normal external appearance, Yes No adnexal tenderness and Yes no masses BLADDER/KIDNEY EXAM: Yes no CVA tenderness OTHER: Deferred vaginal exam Back/Pelvis: COMMON NORMALS: no CVA tenderness, thoracic and lumbar spine normal to inspection, no thoracic nor lumbar tenderness, thoraco-lumbar ROM normal and straight leg raise negative bilaterally Extremity: COMMON NORMALS: normal to inspection, full ROM, capillary refill normal, no joint enlargement, no clubbing, cyanosis or edema, no calf tenderness and no pedal edema Neuro: COMMON NORMALS: patient oriented x3 SENSORIUM/ORIENTATION: Yes alert MENINGEAL SIGNS: Yes no meningeal signs Course Reevaluation(s): Reevaluation #1: Negative evaluation for any acute findings. Patient deferred pelvic exam. We did discuss at length with patient about options. She request to follow-up with [facility] for full pelvic exam. Patient be discharged home Time: 14:30 Vital Signs: Vital signs: Vital Signs Temperature 97.6 F 07/16/20 10:58 Pulse Rate 64 07/16/20 14:00 Respiratory Rate 17 07/16/20 14:00 Blood Pressure 116/65 07/16/20 14:00 Pulse Oximetry 98 07/16/20 14:00 MDM - General Adult MDM Narrative: Medical decision making narrative: This patient is a 29-year-old female that is a G2, P2 who has had her tubes tied in the past presents to the emergency department for lower pelvic pain. Patient states that she has not had a period since 10 May. Patient states that she went to the bathroom this morning and was having significant cramping in the pelvic area and stayed in the bathtub for some time. Patient states she got up to go the bathroom and had a little bit of spotting bleeding and passed a larger clot. Patient states she has never had anything like this before. Patient states after passing the clot she has felt better on the cramping but now just feels a bit more pelvic pressure. Negative evaluation for any acute findings. Patient deferred pelvic exam. We did discuss at length with patient about options. She request to follow-up with [facility] for full pelvic exam. Patient be discharged home Medical Records: Attestation: I reviewed the patient's medical records. Lab Data: Attestation: I reviewed the patient's lab results. Labs: Lab Results 07/16/20 07/16/20 07/16/20 Range/Units 12:40 12:40 12:40 WBC 11.6 H (4.0-10.0) 10^3/ uL RBC 4.11 (4.1-5.3) 10^6/u L Hgb 12.2 (11.5-15.3) g/dL Hct 35.6 L (37.0-47.0) % MCV 86.6 (81-99) fL MCH 29.7 (28.0-34.0) pg MCHC 34.3 (30.0-36.0) g/dL RDW 12.1 (12.1-15.1) % Plt Count 390 (130-400) 10^3/c mm MPV 9.9 (7.4-10.4) fL Neut % (Auto) 73.9 % Lymph % (Auto) 17.6 % [place] % (Auto) 5.6 % Eos % (Auto) 2.2 % Baso % (Auto) 0.4 % Neut # (Auto) 8.53 H (1.8-7.7) 10^3/u L Lymph # (Auto) 2.0 (0.8-4.8) 10^3/u L [place] # (Auto) 0.7 (0.2-0.9) 10^3/u L Eos # (Auto) 0.3 (0.0-0.8) 10^3/u L Baso # (Auto) 0.1 (0.0-0.1) 10^3/u L Nucleated RBC % (a uto) 0 % Nucleated RBCs # 0.0 /100WBC PT (12.1-14.9) SECO NDS INR (0.8-1.2) APTT (23.9-36.7) SECO NDS Sodium 138 (136-145) mmol/L Potassium 3.8 (3.5-5.1) mmol/L Chloride 105 (98-107) mmol/L Carbon Dioxide 24 (22-29) mmol/L Anion Gap 12.8 (5-19) BUN 8 (6-20) mg/dL Creatinine 0.5 (0.5-0.9) mg/dL GFR Calculation 144.9 H (90-130) mL/min Glucose 80 (65-115) mg/dL Calculated Osmolal ity 283 L (285-295) mOsm/k g Calcium 8.5 (8.5-10.5) mg/dL Total Bilirubin 0.4 (0.15-1.2) mg/dL AST 14 (0-32) U/L ALT 14 (0-33) U/L Alkaline Phosphata se 52 (35-105) IU/L Total Protein 7.3 (6.6-8.7) g/dL Albumin 4.6 (3.5-5.2) g/dL Globulin 2.7 (1.3-4.6) g/dL HCG, Qual Negative (Negative) Urine Color (Yellow) Urine Appearance (CLEAR) Urine pH (5-7) Ur Specific Gravit y (1.005-1.030) Urine Protein (Negative) Urine Glucose (UA) (Normal) Urine Ketones (Negative) Urine Blood (Negative) Urine Nitrate (Negative) Urine Bilirubin (Negative) Prot Sulfosalicyli c Acd (Negative) Urine Urobilinogen (Negative) mg/dL Ur Leukocyte Jami ase (Negative) Urine RBC (0-2) /hpf Urine WBC (0-5) /hpf Ur Squamous Epith Cells (0-5) /hpf Amorphous Sediment Urine Bacteria (NONE) /hpf Blood Type Rho(D) Type 07/16/20 07/16/20 07/16/20 Range/Units 12:40 12:43 12:43 WBC (4.0-10.0) 10^3/ uL RBC (4.1-5.3) 10^6/u L Hgb (11.5-15.3) g/dL Hct (37.0-47.0) % MCV (81-99) fL MCH (28.0-34.0) pg MCHC (30.0-36.0) g/dL RDW (12.1-15.1) % Plt Count (130-400) 10^3/c mm MPV (7.4-10.4) fL Neut % (Auto) % Lymph % (Auto) % [place] % (Auto) % Eos % (Auto) % Baso % (Auto) % Neut # (Auto) (1.8-7.7) 10^3/u L Lymph # (Auto) (0.8-4.8) 10^3/u L [place] # (Auto) (0.2-0.9) 10^3/u L Eos # (Auto) (0.0-0.8) 10^3/u L Baso # (Auto) (0.0-0.1) 10^3/u L Nucleated RBC % (a uto) % Nucleated RBCs # /100WBC PT (12.1-14.9) SECO NDS INR (0.8-1.2) APTT (23.9-36.7) SECO NDS Sodium (136-145) mmol/L Potassium (3.5-5.1) mmol/L Chloride (98-107) mmol/L Carbon Dioxide (22-29) mmol/L Anion Gap (5-19) BUN (6-20) mg/dL Creatinine (0.5-0.9) mg/dL GFR Calculation (90-130) mL/min Glucose (65-115) mg/dL Calculated Osmolal ity (285-295) mOsm/k g Calcium (8.5-10.5) mg/dL Total Bilirubin (0.15-1.2) mg/dL AST (0-32) U/L ALT (0-33) U/L Alkaline Phosphata se (35-105) IU/L Total Protein (6.6-8.7) g/dL Albumin (3.5-5.2) g/dL Globulin (1.3-4.6) g/dL HCG, Qual Negative (Negative) Urine Color Yellow (Yellow) Urine Appearance Cloudy (CLEAR) Urine pH 8 H (5-7) Ur Specific Gravit y 1.010 (1.005-1.030) Urine Protein Neg (Negative) Urine Glucose (UA) Norm (Normal) Urine Ketones Negative (Negative) Urine Blood 3+ H (Negative) Urine Nitrate Negative (Negative) Urine Bilirubin Neg (Negative) Prot Sulfosalicyli c Acd Negative (Negative) Urine Urobilinogen Norm (Negative) mg/dL Ur Leukocyte Jami ase Negative (Negative) Urine RBC 25-40 H (0-2) /hpf Urine WBC 0-4 H (0-5) /hpf Ur Squamous Epith Cells 0-4 H (0-5) /hpf Amorphous Sediment Not Reportable Urine Bacteria Trace (NONE) /hpf Blood Type A Positive Rho(D) Type Positive / 4+ 07/16/20 Range/Units 13:01 WBC (4.0-10.0) 10^3/ uL RBC (4.1-5.3) 10^6/u L Hgb (11.5-15.3) g/dL Hct (37.0-47.0) % MCV (81-99) fL MCH (28.0-34.0) pg MCHC (30.0-36.0) g/dL RDW (12.1-15.1) % Plt Count (130-400) 10^3/c mm MPV (7.4-10.4) fL Neut % (Auto) % Lymph % (Auto) % [place] % (Auto) % Eos % (Auto) % Baso % (Auto) % Neut # (Auto) (1.8-7.7) 10^3/u L Lymph # (Auto) (0.8-4.8) 10^3/u L [place] # (Auto) (0.2-0.9) 10^3/u L Eos # (Auto) (0.0-0.8) 10^3/u L Baso # (Auto) (0.0-0.1) 10^3/u L Nucleated RBC % (a uto) % Nucleated RBCs # /100WBC PT 13.70 (12.1-14.9) SECO NDS INR 1.02 (0.8-1.2) APTT 29.4 (23.9-36.7) SECO NDS Sodium (136-145) mmol/L Potassium (3.5-5.1) mmol/L Chloride (98-107) mmol/L Carbon Dioxide (22-29) mmol/L Anion Gap (5-19) BUN (6-20) mg/dL Creatinine (0.5-0.9) mg/dL GFR Calculation (90-130) mL/min Glucose (65-115) mg/dL Calculated Osmolal ity (285-295) mOsm/k g Calcium (8.5-10.5) mg/dL Total Bilirubin (0.15-1.2) mg/dL AST (0-32) U/L ALT (0-33) U/L Alkaline Phosphata se (35-105) IU/L Total Protein (6.6-8.7) g/dL Albumin (3.5-5.2) g/dL Globulin (1.3-4.6) g/dL HCG, Qual (Negative) Urine Color (Yellow) Urine Appearance (CLEAR) Urine pH (5-7) Ur Specific Gravit y (1.005-1.030) Urine Protein (Negative) Urine Glucose (UA) (Normal) Urine Ketones (Negative) Urine Blood (Negative) Urine Nitrate (Negative) Urine Bilirubin (Negative) Prot Sulfosalicyli c Acd (Negative) Urine Urobilinogen (Negative) mg/dL Ur Leukocyte Jami ase (Negative) Urine RBC (0-2) /hpf Urine WBC (0-5) /hpf Ur Squamous Epith Cells (0-5) /hpf Amorphous Sediment Urine Bacteria (NONE) /hpf Blood Type Rho(D) Type Discharge Plan Discharge Patient Disposition: Home Clinical Impression: Abnormal vaginal bleeding, Pelvic pain Condition: Stable Prescriptions: New diclofenac sodium 75 mg tablet,delayed release (DR/EC) 75 mg PO BID PRN (Reason: pain) Qty: 20 RF: 0 No Action Herbalife Total Control 1 tab PO DAILY PRN (Reason: UNKNOWN) RF: 0 Discharge Orders: Discharge ED (Routine); Ordered 07/16/20 Ordered By: Siva Reyes Discharge Diet: Advance as tolerated Discharge Activity: Resume usual activity Patient Instructions: Opioid Safety Activity Restrictions/Additional Instructions: Encourage p.o. fluids. Lay on left side as needed for help with comfort cramps. Monitor bleeding and pads closely. Follow-up with [facility] of choice in 5 to 7 days for for complete pelvic exam. Take medications as instructed Coding Level of Care Code ED Traffic Workforce Representative for Chg Fwd Exam Comprehensive
[2020-07-16 13:09] LABS: Basophils # 0.1 10^3/uL (0.0-0.1); Basophils % 0.4 %; Eosinophils # 0.3 10^3/uL (0.0-0.8); Eosinophils % 2.2 %; Hematocrit 35.6 % (37.0-47.0); Hemoglobin 12.2 g/dL (11.5-15.3); Lymphocytes % 17.6 %; Mean Corpuscular HGB Conc 34.3 g/dL (30.0-36.0); Mean Corpuscular Hemoglobin 29.7 pg (28.0-34.0); Mean Corpuscular Volume 86.6 fL (81-99); Mean Platelet Volume 9.9 fL (7.4-10.4); Monocytes # 0.7 10^3/uL (0.2-0.9); Monocytes % 5.6 %; Neutrophils # 8.53 10^3/uL (1.8-7.7); Neutrophils % 73.9 %; Nucleated Red Blood Cells % 0 %; Platelet Count 390 10^3/cmm (130-400); Red Blood Count 4.11 10^6/uL (4.1-5.3); Red Cell Distribution Width 12.1 % (12.1-15.1); White Blood Count 11.6 10^3/uL (4.0-10.0)
[2020-07-16 13:16] LABS: Alanine Aminotransferase 14 U/L (0-33); Albumin Level 4.6 g/dL (3.5-5.2); Alkaline Phosphatase 52 IU/L (35-105); Anion Gap 12.8 (5-19); Aspartate Amino Transferase 14 U/L (0-32); Blood Urea Nitrogen 8 mg/dL (6-20); Calcium 8.5 mg/dL (8.5-10.5); Carbon Dioxide 24 mmol/L (22-29); Chloride 105 mmol/L (98-107); Globulin 2.7 g/dL (1.3-4.6); Glomerular Filtration Rate 144.9 mL/min (90-130); Glucose 80 mg/dL (65-115); Osmolality Calculated 283 mOsm/kg (285-295); Potassium 3.8 mmol/L (3.5-5.1); Sodium 138 mmol/L (136-145); Total Bilirubin 0.4 mg/dL (0.15-1.2); Total Protein 7.3 g/dL (6.6-8.7)
[2020-07-16 13:18] LABS: HCG Qualitative Urine. Negative (Negative)
[2020-07-16 13:19] LABS: Add Urine Microscopic? YES; Bilirubin Urine Neg (Negative); Blood Urine 3+ (Negative); Glucose Urine UA Norm (Normal); Ketones Urine Negative (Negative); Leukocyte Esterase Urine Negative (Negative); Nitrate Urine Negative (Negative); Protein Urine Neg (Negative); Sulfosalicylic Acid Urine Negative (Negative); Urine Appearance Cloudy (CLEAR); Urine Color Yellow (Yellow); Urobilinogen Urine Norm (Negative); pH Urine 8 (5-7)
[2020-07-16 13:21] LABS: INR 1.02 (0.8-1.2)
[2020-07-16 13:22] LABS: Partial Thromboplastin Time 29.4 SECONDS (23.9-36.7)
[2020-07-16 13:26] LABS: HCG, Serum Qual Negative (Negative)
[2020-07-16 13:35] LABS: Add Urine Culture? Yes; Bacteria Urine TRACE /hpf; RBC Urine 25-40 /hpf (0-2); Squamous Epithelial Cell Urine 0-4 /hpf (0-5); WBC Urine 0-4 /hpf (0-5)
[2020-07-16] MEDS: sodium chloride 0.9% 1,000 ML 999 ML IV (13:49)
[2020-07-16 13:50] VITALS: BP 103/74; PULSE 84; RESP 18; O2SAT 99
[2020-07-16 14:00] VITALS: BP 116/65; PULSE 64; RESP 17; O2SAT 98
[2020-07-16 15:19] VITALS: RESP 18
== END 2020-07-16 15:16 | disposition home or self-care (01) ==
PROVIDERS: Emergency Provider Emergency Medicine
DX: N93.9 Abnormal uterine and vaginal bleeding, unspecified (principal); R10.2 Pelvic and perineal pain
CPT/HCPCS: 80053; 81001; 81025; 84703; 85025; 85610; 85730; 86900; 87086; 96360; 99284; J7030

== ENCOUNTER 2021-03-06 10:16 | Emergency (ER) | payer SELFPAY ==
--- NOTE | 2021-03-06 10:18 | XR_ITS ---
WS: [id number] LEFT FOOT: 3 VIEW(S) TECHNIQUE: AP, oblique and lateral. HISTORY: injury/pain COMPARISON: None available. No acute fracture or dislocation. Normal tarsal/metatarsal alignment. No soft tissue abnormality or bone destruction. XR/XR foot LT min 3V* [id number] IMPRESSION: Normal LEFT foot.
--- NOTE | 2021-03-06 10:26 | ED_ITS ---
Documented by User: REYNA De La Garza 03/06/21 10:44 HPI - Extremity Injury (Lower) General: Chief Complaint: Extremity Injury, Lower Stated Complaint: LEFT FOOT INJURY Time Seen by Provider: 03/06/21 10:18 Source: patient Mode of arrival: ambulatory (with crutches) Limitations: no limitations History of Present Illness: Patient is a 30-year-old female who presents to ED today for evaluation of a left foot injury that she sustained yesterday after she rolled her foot in her house while doing laundry. Patient states she is not able to ambulate on the extremity and has been using crutches. She has no other injuries or complaints at this time. complaint: foot injury Onset (ago): hour(s) Injury: Left: foot Type of Injury: inversion Place: home Severity: moderate Relieving factors: immobilization Exacerbating factors: weight bearing, movement and palpation Context: other (twisting) Other symptoms: none Review of Systems Musc: Reports: extremity pain (L foot) and extremity swelling (L foot) Skin/Breast: Reports: other (bruising to L foot) Neuro: Denies: numbness in extremities, weakness in extremities or sensory changes COUNT INCLUDES THE [facility] ED PFSH: Medical History (Updated 03/06/21 @ 10:43 by REYNA De La Garza) Generalized anxiety disorder History of ADHD Psychiatric care Family History Father Hypertension Social History Smoking and tobacco status: never smoked Alcohol intake: current Alcohol intake frequency: holidays/special occasions only Alcohol type: wine Female Reproductive History: Date of last menstrual period: 06/02/20 Physical Exam Const: COMMON NORMALS: no acute distress, average body habitus, patient oriented x3, no limitations, healthy appearing and alert Extremity: LEFT LOWER EXTREMITY: Yes foot & digits (pt with tenderness, swelling, and ecchymosis throughout lateral foot) Left foot and digits: Yes neurovascular exam (normal) Neuro: COMMON NORMALS: patient oriented x3 SENSORIUM/ORIENTATION: Yes alert Course Vital Signs: Vital signs: Vital Signs Pulse Rate 76 03/06/21 10:43 Respiratory Rate 16 03/06/21 10:43 Blood Pressure 102/79 03/06/21 10:43 Pulse Oximetry 99 03/06/21 10:43 MDM - Extremity Injury (Lower) Medical Decision Making XR negative. She has ERINN wrap/crutches she is already using. RICE therapy discussed. Lab Data Radiology Impressions Foot X-Ray 03/06/21 10:18 IMPRESSION: Normal LEFT foot. Imaging Data XR L foot: Radiologist's impression: [facility] [address] [address] XRay Report Signed Patient: Sarita Ayon Unit #: [id number] : 1990 Age/Sex: 30 / F ADM Date: 03/06/21 Loc: ER Room/Bed: Attending Dr: Ordering Provider/Ordering MD: Aurelia White Date of Service: 03/06/21 Procedure(s): XR foot LT min 3V* [id number] Accession Number(s): [id number] Report Number: [id number] WS: [id number] LEFT FOOT: 3 VIEW(S) TECHNIQUE: AP, oblique and lateral. HISTORY: injury/pain COMPARISON: None available. No acute fracture or dislocation. Normal tarsal/metatarsal alignment. No soft tissue abnormality or bone destruction. XR/XR foot LT min 3V* [id number] IMPRESSION: Normal LEFT foot. Dictated By: Obdulia Livingston DO Signed By: Obdulia Livingston DO Signed Date/Time: 03/06/21 1035 DD/ 1033 Discharge Plan Discharge Patient Disposition: Home Clinical Impression: Sprain of foot, left Condition: Stable Prescriptions: No Action diclofenac sodium 75 mg tablet,delayed release (DR/EC) 75 mg PO BID PRN (Reason: pain) 0RF Label Comments: Pt states not taking this med Herbalife Total Control 1 tab PO DAILY PRN (Reason: UNKNOWN) 0RF Label Comments: pt states not taking this med Discharge Orders: Discharge ED (Routine); Ordered 03/06/21 Ordered By: Aurelia White Patient Instructions: Foot Sprain (ED), R.I.C.E. Treatment (ED) Coding Level of Care Code ED Advisory Services Associate for Chg Fwd Exam Expanded Problem Focused Documented by User: Benson Aguirre DO 03/06/21 12:08 HPI - Extremity Injury (Lower) General: Chief Complaint: Extremity Injury, Lower Stated Complaint: LEFT FOOT INJURY Time Seen by Provider: 03/06/21 10:18 [facility] ED PFSH: Medical History (Updated 03/06/21 @ 10:43 by REYNA De La Garza) Generalized anxiety disorder History of ADHD Psychiatric care Family History Father Hypertension Social History Smoking and tobacco status: never smoked Alcohol intake: current Alcohol intake frequency: holidays/special occasions only Alcohol type: wine Course Vital Signs: Vital signs: Vital Signs Pulse Rate 76 03/06/21 10:43 Respiratory Rate 16 03/06/21 10:43 Blood Pressure 102/79 03/06/21 10:43 Pulse Oximetry 99 03/06/21 10:43 MDM - Extremity Injury (Lower) Medical Decision Making XR negative. She has ERINN wrap/crutches she is already using. RICE therapy discussed. Chart reviewed and patient discussed with midlevel. Agree with assessment and plan. Lab Data Radiology Impressions Foot X-Ray 03/06/21 10:18 IMPRESSION: Normal LEFT foot. Discharge Plan Discharge Patient Disposition: Home Clinical Impression: Sprain of foot, left Condition: Stable Prescriptions: No Action diclofenac sodium 75 mg tablet,delayed release (DR/EC) 75 mg PO BID PRN (Reason: pain) 0RF Label Comments: Pt states not taking this med Herbalife Total Control 1 tab PO DAILY PRN (Reason: UNKNOWN) 0RF Label Comments: pt states not taking this med Discharge Orders: Discharge ED (Routine); Ordered 03/06/21 Ordered By: Aurelia White Patient Instructions: Foot Sprain (ED), R.I.C.E. Treatment (ED) Coding Level of Care Code ED Advisory Services Associate for Chg Fwd Exam Expanded Problem Focused
[2021-03-06 10:32] VITALS: BP 102/69; PULSE 76; RESP 16; O2SAT 99
[2021-03-06 10:35] VITALS: BMI 21.6
[2021-03-06 10:43] VITALS: BP 102/79; PULSE 76; RESP 16; O2SAT 99
== END 2021-03-06 10:49 | disposition home or self-care (01) ==
PROVIDERS: Emergency Provider Physician Assistant
DX: S93.602A Unspecified sprain of left foot, initial encounter (principal); X50.1XXA Overexertion from prolonged static or awkward postures, initial encounter
CPT/HCPCS: 73630; 99282

== ENCOUNTER 2022-04-13 17:18 | Emergency (ER) | payer OTHER, SELFPAY ==
[2022-04-13 18:01] LABS: Basophils % 0.7 %; Eosinophils # 0.3 10^3/uL (0.0-0.8); Eosinophils % 4.1 %; Hematocrit 37.9 % (37.0-47.0); Hemoglobin 12.3 g/dL (11.5-15.3); Lymphocytes # 1.8 10^3/uL (0.8-4.8); Mean Corpuscular HGB Conc 32.5 g/dL (30.0-36.0); Mean Corpuscular Hemoglobin 28.8 pg (28.0-34.0); Mean Corpuscular Volume 88.8 fl (81-99); Mean Platelet Volume 9.1 fL (7.4-10.4); Monocytes # 0.6 10^3/uL (0.2-0.9); Monocytes % 9.6 %; Neutrophils # 3.41 10^3/uL (1.8-7.7); Neutrophils % 56.4 %; Nucleated Red Blood Cells % 0 %; Platelet Count 365 10^3/cmm (130-400); Red Blood Count 4.27 10^6/uL (4.1-5.3); Red Cell Distribution Width 12.4 % (12.1-15.1)
[2022-04-13 18:05] VITALS: BP 106/71; PULSE 79; RESP 14; TEMP 36.8; O2SAT 97; BMI 23.3
[2022-04-13 18:14] LABS: HCG, Serum Qual Negative (Negative)
[2022-04-13 18:22] LABS: Alanine Aminotransferase 12 U/L (0-33); Albumin Level 4.5 g/dL (3.5-5.2); Alkaline Phosphatase 61 U/L (35-105); Anion Gap 14.7 (5-19); Aspartate Amino Transferase 15 U/L (0-32); Blood Urea Nitrogen 7 mg/dL (6-20); Calcium 9.5 mg/dL (8.5-10.5); Carbon Dioxide 25 mmol/L (22-29); Chloride 103 mmol/L (98-107); Creatinine Clr Calc Pharmacy 126.6526; Globulin 3.1 g/dL (1.3-4.6); Glomerular Filtration Rate 115.9 mL/min (90-130); Glucose 90 mg/dL (65-115); Lipase 26 U/L (13-60); Osmolality Calculated 286 mOsm/kg (285-295); Potassium 3.7 mmol/L (3.5-5.1); Sodium 139 mmol/L (136-145); Total Bilirubin 0.3 mg/dL (0.15-1.2); Total Protein 7.6 g/dL (6.6-8.7)
--- NOTE | 2022-04-13 20:55 | W.ED.NAVMDI ---
HPI - Nausea/Vomiting/Diarrhea General: Chief complaint: Nausea/Vomiting/Diarrhea Stated complaint: n/v Time Seen by Provider: 04/13/22 20:40 Source: patient History of Present Illness: 31 female who presents with a 3 to 4-day history of nausea, vomiting and diarrhea. She states she is vomited multiple times, not keeping down any fluids. She is having 1-2 episodes of diarrhea daily as well. She denies abdominal pain. She states today she felt weak and her legs came out from underneath her and she fell due to the weakness. No fever. No ill contacts. She denies melena. She denies coffee-ground emesis. Review of Systems Narrative: See HPI PFSH ED PFSH: Medical History (Updated 04/13/22 @ 22:28 by Eva Ramesh MD) Generalized anxiety disorder History of ADHD Family History Father Hypertension Social History Smoking and tobacco status: never smoked Alcohol intake: current Alcohol intake frequency: holidays/special occasions only Alcohol type: wine Physical Exam Const: COMMON NORMALS: no acute distress, healthy appearing and well nourished HENMT: COMMON NORMALS: normocephalic, atraumatic, external ears normal and Normal external nose present; oral mucous membranes not moist HEAD & SCALP: normocephalic and atraumatic NOSE: Normal external nose present EXTERNAL EAR: Yes external ears normal OTHER: Dry mucous membranes Oropharynx is clear Neck/C-Spine: OTHER: Neck is supple, no lymphadenopathy. Cardio: OTHER: Heart regular rate and rhythm GI: OTHER: Abdomen is soft, nontender nondistended Extremity: OTHER: No swelling or deformity noted Course Reevaluation(s): Reevaluation #1: Nausea improved after Zofran. Patient is complaining of a headache. We will give her IV Toradol. Vital Signs: Vital signs: Vital Signs Temperature 98.3 F 04/13/22 18:05 Pulse Rate 79 04/13/22 18:05 Respiratory Rate 14 04/13/22 18:05 Blood Pressure 106/71 04/13/22 18:05 Pulse Oximetry 97 04/13/22 18:05 Oxygen Delivery Me thod 04/13/22 18:05 MDM - Nausea/Vomiting/Diarrhea Medical Decision Making 31-year-old female with a 3-day history of nausea, vomiting and diarrhea. No associated abdominal pain. No fever. Likely this is a viral gastroenteritis. We will start an IV, give her IV fluids and IV Zofran. Will obtain labs including a CBC CMP and urinalysis and a test. Once the patient's nausea has improved, we will p.o. challenge her. Labs are unremarkable including a CBC and CMP Urine appears contaminated. The patient is tolerating p.o. fluids. We will discharge her home with Phenergan to take every 4-6 hours as needed for nausea and vomiting. Clear liquids initially. Then brat diet. Return precautions have been discussed tushar the results with the patient.. Lab Data Patient's white blood cell count is normal. Electrolytes are normal. Urine does appear contaminated with 40-55 squamous epithelial cells and 5-10 white blood cells, no bacteria 04/13/22 17:50 04/13/22 17:50 Laboratory Results WBC 6.0 10^3/uL (4.0-10.0) 04/13/22 17:50 RBC 4.27 10^6/uL (4.1-5.3) 04/13/22 17:50 Hgb 12.3 g/dL (11.5-15.3) 04/13/22 17:50 Hct 37.9 % (37.0-47.0) 04/13/22 17:50 MCV 88.8 fl (81-99) 04/13/22 17:50 MCH 28.8 pg (28.0-34.0) 04/13/22 17:50 MCHC 32.5 g/dL (30.0-36.0) 04/13/22 17:50 RDW 12.4 % (12.1-15.1) 04/13/22 17:50 Plt Count 365 10^3/cmm (130-400) 04/13/22 17:50 MPV 9.1 fL (7.4-10.4) 04/13/22 17:50 Neut % (Auto) 56.4 % 04/13/22 17:50 Lymph % (Auto) 29.0 % 04/13/22 17:50 [place] % (Auto) 9.6 % 04/13/22 17:50 Eos % (Auto) 4.1 % 04/13/22 17:50 Baso % (Auto) 0.7 % 04/13/22 17:50 Neut # (Auto) 3.41 10^3/uL (1.8-7.7) 04/13/22 17:50 Lymph # (Auto) 1.8 10^3/uL (0.8-4.8) 04/13/22 17:50 [place] # (Auto) 0.6 10^3/uL (0.2-0.9) 04/13/22 17:50 Eos # (Auto) 0.3 10^3/uL (0.0-0.8) 04/13/22 17:50 Baso # (Auto) 0.0 10^3/uL (0.0-0.1) 04/13/22 17:50 Nucleated RBC % (auto) 0 % 04/13/22 17:50 Nucleated RBCs # 0.0 /100WBC 04/13/22 17:50 Sodium 139 mmol/L (136-145) 04/13/22 17:50 Potassium 3.7 mmol/L (3.5-5.1) 04/13/22 17:50 Chloride 103 mmol/L (98-107) 04/13/22 17:50 Carbon Dioxide 25 mmol/L (22-29) 04/13/22 17:50 Anion Gap 14.7 (5-19) 04/13/22 17:50 BUN 7 mg/dL (6-20) 04/13/22 17:50 Creatinine 0.6 mg/dL (0.5-0.9) 04/13/22 17:50 GFR Calculation 115.9 mL/min (90-130) 04/13/22 17:50 Glucose 90 mg/dL (65-115) 04/13/22 17:50 Calculated Osmolality 286 mOsm/kg (285-295) 04/13/22 17:50 Calcium 9.5 mg/dL (8.5-10.5) 04/13/22 17:50 Total Bilirubin 0.3 mg/dL (0.15-1.2) 04/13/22 17:50 AST 15 U/L (0-32) 04/13/22 17:50 ALT 12 U/L (0-33) 04/13/22 17:50 Alkaline Phosphatase 61 U/L (35-105) 04/13/22 17:50 Total Protein 7.6 g/dL (6.6-8.7) 04/13/22 17:50 Albumin 4.5 g/dL (3.5-5.2) 04/13/22 17:50 Globulin 3.1 g/dL (1.3-4.6) 04/13/22 17:50 Lipase 26 U/L (13-60) 04/13/22 17:50 HCG, Qual Negative (Negative) 04/13/22 17:50 Urine Color Yellow (Yellow) 04/13/22 21:00 Urine Appearance Hazy (CLEAR) A 04/13/22 21:00 Urine pH 5 (5-7) 04/13/22 21:00 Ur Specific [place] 1.025 (1.005-1.030) 04/13/22 21:00 Urine Protein Trace (Negative) 04/13/22 21:00 Urine Glucose (UA) Norm (Normal) 04/13/22 21:00 Urine Ketones 1+ (Negative) H 04/13/22 21:00 Urine Blood 3+ (Negative) H 04/13/22 21:00 Urine Nitrate Negative (Negative) 04/13/22 21:00 Urine Bilirubin Neg (Negative) 04/13/22 21:00 Urine Urobilinogen Neg mg/dL (Negative) 04/13/22 21:00 Ur Leukocyte Esterase Trace (Negative) H 04/13/22 21:00 Urine RBC 5-10 /hpf (0-2) H 04/13/22 21:00 Urine WBC 0-4 /hpf (0-5) H 04/13/22 21:00 Ur Squamous Epith Cells 40-55 /hpf (0-5) H 04/13/22 21:00 Amorphous Sediment Not Reportable 04/13/22 21:00 Urine Bacteria Trace /hpf (NONE) 04/13/22 21:00 Urine Mucus 4+ /hpf 04/13/22 21:00 Discharge Plan Discharge Patient Disposition: Home Clinical Impression: Gastroenteritis Condition: Stable Prescriptions: New promethazine 25 mg tablet 25 mg PO Q6H PRN (Reason: nausea) Qty: 20 0RF No Action diclofenac sodium 75 mg tablet,delayed release (DR/EC) 75 mg PO BID PRN (Reason: pain) Label Comments: Pt states not taking this med Herbalife Total Control 1 tab PO DAILY PRN (Reason: UNKNOWN) Label Comments: pt states not taking this med Discharge Orders: Discharge ED (Routine); Ordered 04/13/22 Ordered By: Eva Ramesh Discharge Diet: Advance as tolerated Discharge Activity: Increase activity as tolerated Patient Instructions: Gastroenteritis (ED) Activity Restrictions/Additional Instructions: Push fluids. Take the Phenergan every 4-6 hours as needed for nausea and vomiting. Home to rest. Return if your symptoms are worsening. Imodium 4 times daily as needed for diarrhea. 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
[2022-04-13] MEDS: sodium chloride 0.9% 1,000 ML 999 ML IV (21:00)
[2022-04-13] MEDS: ondansetron 2 mg/ML SDV 2 mL 4 MG IVP (21:00)
[2022-04-13 22:03] LABS: Glucose Urine UA Norm (Normal); Ketones Urine 1+ (Negative); Protein Urine Trace (Negative); Specific Gravity, Urine 1.025 (1.005-1.030); Urine Appearance Hazy (CLEAR); Urine Color Yellow (Yellow); pH Urine 5 (5-7)
[2022-04-13 22:04] LABS: Add Urine Microscopic? YES; Bilirubin Urine Neg (Negative); Blood Urine 3+ (Negative); Leukocyte Esterase Urine Trace (Negative); Nitrate Urine Negative (Negative); Urobilinogen Urine Neg (Negative)
[2022-04-13 22:06] LABS: Add Urine Culture? No; Bacteria Urine TRACE /hpf; Mucus Urine 4+ /hpf; Squamous Epithelial Cell Urine 40-55 /hpf (0-5); WBC Urine 0-4 /hpf (0-5)
[2022-04-13] MEDS: ketorolac 30 mg/mL INJ 15 MG IVP (22:16)
[2022-04-13 23:02] VITALS: RESP 16
[2022-04-13] MEDS: morphine 4 mg/mL SDV 1 mL IVP (23:02)
[2022-04-13] MEDS: prochlorperazine 10 mg/2 mL Inj IVP (23:06)
[2022-04-13 23:09] VITALS: PULSE 69; RESP 18; O2SAT 96
[2022-04-13 23:50] VITALS: BP 108/74; PULSE 68; RESP 14; O2SAT 96
--- NOTE | 2022-04-21 16:20 | DCPLANNER ---
04.19.22 - patient called due to no primary care physician - unable to leave a voicemail 04.20.22 - patient called due to no primary care physician - patient stated that they see Dr. Harper
== END 2022-04-13 23:51 | disposition home or self-care (01) ==
PROVIDERS: Physician Assistant; Emergency Provider Emergency Medicine
DX: K52.9 Noninfective gastroenteritis and colitis, unspecified (principal)
CPT/HCPCS: 36415; 80053; 81001; 83690; 84703; 85025; 96361; 96374; 96375; 99284; J0780; J1885; J2270; J2405; J7030

== ENCOUNTER 2023-12-26 17:13 | Emergency (ER) | payer OTHER, SELFPAY ==
[2023-12-26 17:18] VITALS: BP 115/77; PULSE 83; RESP 16; TEMP 36.7; O2SAT 100
[2023-12-26 17:59] LABS: Bilirubin Urine Negative (Negative); Blood Urine Non-haemolysed trace (Negative); Glucose Urine UA Negative (Normal); Ketones Urine Negative (Negative); Leukocyte Esterase Urine 2+ (Negative); Nitrate Urine Positive (Negative); Protein Urine Trace (Negative); Specific Gravity, Urine 1.018 (1.005-1.030); Urine Appearance Cloudy (CLEAR); Urine Color Yellow (Yellow); pH Urine 5.5 (5-7)
[2023-12-26 18:04] LABS: Add Urine Microscopic? YES; Bacteria Urine 4+ /hpf; Hyaline Casts Urine 0-4 /lpf; RBC Urine 0-2 /hpf (0-2); Squamous Epithelial Cell Urine 0-5 /hpf (0-5); WBC Urine >100 /hpf (0-5)
[2023-12-26 18:05] LABS: Add Urine Culture? Yes
[2023-12-26 18:17] LABS: HCG Qualitative Urine. Negative (Negative)
[2023-12-26 18:18] LABS: Basophils % 0.4 %; Eosinophils # 0.2 10^3/uL (0.0-0.8); Eosinophils % 2.3 %; Hematocrit 35.7 % (36-47); Lymphocytes % 19.3 %; Mean Corpuscular HGB Conc 33.1 g/dL (30-55); Mean Corpuscular Hemoglobin 29.5 pg (27-33); Mean Corpuscular Volume 89.3 fl (85-98); Mean Platelet Volume 9.3 fL (7.4-10.4); Monocytes # 0.8 10^3/uL (0.2-0.9); Monocytes % 7.8 %; Neutrophils # 7.12 10^3/uL (1.8-7.7); Neutrophils % 69.9 %; Nucleated Red Blood Cells % 0 %; Platelet Count 392 10^3/cmm (157-399); Red Cell Distribution Width 12.4 % (12.1-15.1); White Blood Count 10.17 10^3/uL (3.29-11.43)
[2023-12-26] MEDS: phenazopyridine 100 mg Tablet PO (18:22)
[2023-12-26] MEDS: morphine 4 mg/mL SDV 1 mL 2 MG IVP (18:22)
[2023-12-26] MEDS: sulfamethoxazole-trimeth DS 160-800 mg Tablet 1 TAB PO (18:22)
[2023-12-26] MEDS: ondansetron 2 mg/ML SDV 2 mL 4 MG IVP (18:22)
[2023-12-26 18:24] VITALS: BP 104/78; PULSE 68; RESP 16; O2SAT 100
--- NOTE | 2023-12-26 18:33 | ED_ITS ---
HPI - Abdominal Pain 2 General: Chief Complaint: Abdominal Pain Stated Complaint: unable to pee, severe pain abd Time Seen by Provider: 12/26/23 17:25 History of Present Illness: Patient is a 33-year-old female that presents to the emergency department with reports of bladder spasms, urgency and hesitancy. Onset of symptoms approximately 24 hours ago. Patient denies any history of chronic UTI. She denies systemic symptoms. Denies fever chills. Does report abdominal pain Describes it as a cramping sensation. Reports poor urine output. Associated Symptoms: Reports dysuria and nausea; Denies bloating, chills, constipation, GI cramping, diarrhea, fever(s), hematochezia, hematuria and vomiting Related Data Home Medications Medication Instructions Recorded Confirmed Herbalife Total Control 1 tab PO DAILY PRN UNKNOWN 11/26/20 diclofenac sodium 75 mg 75 mg PO BID PRN pain 11/26/20 tablet,delayed release Previous Rx's Medication Instructions Recorded promethazine 25 mg tablet 25 mg PO Q6H PRN nausea #20 tabs 04/13/22 ondansetron HCl 4 mg tablet 4 mg PO Q8H 5 days #15 tabs 12/26/23 phenazopyridine 100 mg tablet 100 mg PO Q8H PRN pain 6 days #10 12/26/23 (Pyridium) tabs sulfamethoxazole 800 1 tab PO BID 7 days #14 tabs 12/26/23 mg-trimethoprim 160 mg tablet (Bactrim DS) Allergies Allergy/AdvReac Type Severity Reaction Status Date / Time ampicillin Allergy ALGY-Rash Verified 12/26/23 17:22 Review of Systems 2 General: Reports: 10 or more systems reviewed and unremarkable except in HPI and below Const: Denies: fever(s), chills, change in appetite, change in weight, fatigue or malaise Eyes: Denies: change in vision, eye discomfort, eye discharge or eye redness ENMT: Denies: throat pain, enlarged tonsils, odynophagia, hoarseness, ear or mastoid pain, ear discharge, change in hearing, tinnitus, nasal discharge, nasal congestion, post nasal drip or sinus pain Card: Denies: chest pain, palpitations, irregular heart rhythm, edema, dyspnea on exertion, orthopnea or leg pain with exertion Resp: Denies: dyspnea, productive cough, non-productive cough, wheezing, stridor or chest congestion GI: Reports: abdominal pain and nausea; Denies: vomiting, dysphagia, diarrhea, constipation, bloating, GI cramping or hematochezia : Reports: difficulty voiding, dysuria, urinary frequency, urinary urgency, urinary hesitancy and oliguria; Denies: flank pain or hematuria Musc: Denies: neck pain, back pain, extremity pain, joint pain, joint swelling, joint redness, joint warmth or muscle weakness Skin/Breast: Denies: rash, pruritus, erythema, photosensitivity or new lesions Neuro: Denies: headache(s), numbness in extremities, weakness in extremities, sensory changes, lack of coordination, difficulty walking, frequent falls, dizziness, confusion, Slurred speech present, difficulty communicating thoughts, seizure-like activity or involuntary movements Endo: Denies: polyuria, polydipsia or tired all the time Asim/Lymph: Denies: easy bruising or easy bleeding PFSH ED 2 PFSH: Medical History (Updated 12/26/23 @ 18:40 by ERICK Clark) History of ADHD Generalized anxiety disorder Family History Father Hypertension Social History Smoking and tobacco/nicotine status: never used tobacco/nicotine Alcohol intake: current Alcohol intake frequency: holidays/special occasions only Alcohol type: wine Substance/Drug Use: current Substance/Drug use frequency: daily Physical Exam 2 Const: COMMON NORMALS: no acute distress, healthy appearing and well nourished HENMT: COMMON NORMALS: normocephalic, atraumatic, external ears normal and Normal external nose present; oral mucous membranes not moist HEAD & SCALP: normocephalic and atraumatic NOSE: Normal external nose present EXTERNAL EAR: Yes external ears normal OTHER: Dry mucous membranes Oropharynx is clear Neck/C-Spine: COMMON NORMALS: full ROM OTHER: Neck is supple, no lymphadenopathy. Cardio: COMMON NORMALS: regular rate and regular rhythm RATE: regular rate RHYTHM: regular rhythm OTHER: Heart regular rate and rhythm GI: COMMON NORMALS: Normal to inspection, nondistended, normoactive bowel sounds present, Soft to palpation and non-tender PALPATION: Yes Soft to palpation and Yes Bladder palpation abnormal OTHER: Abdomen is soft, nontender nondistended : COMMON NORMALS: Yes no CVA tenderness BLADDER/KIDNEY EXAM: Yes no CVA tenderness and Yes Bladder palpation abnormal Bladder abnormal details: tender Back/Pelvis: COMMON NORMALS: no CVA tenderness Extremity: COMMON NORMALS: normal to inspection OTHER: No swelling or deformity noted Course 2 Vital Signs: Vital signs: Vital Signs Temperature 98.0 F 12/26/23 17:18 Pulse Rate 68 12/26/23 18:24 Respiratory Rate 16 12/26/23 18:24 Blood Pressure 104/78 12/26/23 18:24 Pulse Oximetry 100 12/26/23 18:24 Oxygen Delivery Me thod Room Air 12/26/23 18:24 MDM - Abdominal Pain Medical Decision Making Patient is a 33-year-old female that presents with urinary tract infection type symptoms. Reports bladder spasms, cramping sensation, urgency and hesitancy. Patient underwent evaluation that included a CBC, CMP, urinalysis. There is no evidence of systemic leukocytosis. She has no anemias. Her urinalysis does reveal leukocytosis, leukoesterase, bacteria. I treated her with Bactrim due to her ampicillin allergy. I also gave her Pyridium. Symptoms did improve. She also underwent a bladder scan which showed 5 cc of urine in her bladder. Her chemistry panel was unremarkable. At this point no further diagnostics are warranted. Were going to treat her for urinary tract infection. Amended discharge her home with Pyridium, Zofran, Bactrim. Patient needs to follow-up with primary care and return here as needed for new concerning or worsening symptoms Lab Data 12/26/23 17:57 12/26/23 17:57 Labs/Radiology: Laboratory Results WBC 10.17 10^3/uL (3.29-11.43) 12/26/23 17:57 RBC 4.00 10^6/uL (3.85-5.65) 12/26/23 17:57 Hgb 11.80 g/dL (11.27-16.99) 12/26/23 17:57 Hct 35.7 % (36-47) L 12/26/23 17:57 MCV 89.3 fl (85-98) 12/26/23 17:57 MCH 29.5 pg (27-33) 12/26/23 17:57 MCHC 33.1 g/dL (30-55) 12/26/23 17:57 RDW 12.4 % (12.1-15.1) 12/26/23 17:57 Plt Count 392 10^3/cmm (157-399) 12/26/23 17:57 MPV 9.3 fL (7.4-10.4) 12/26/23 17:57 Neut % (Auto) 69.9 % 12/26/23 17:57 Lymph % (Auto) 19.3 % 12/26/23 17:57 [place] % (Auto) 7.8 % 12/26/23 17:57 Eos % (Auto) 2.3 % 12/26/23 17:57 Baso % (Auto) 0.4 % 12/26/23 17:57 Neut # (Auto) 7.12 10^3/uL (1.8-7.7) 12/26/23 17:57 Lymph # (Auto) 2.0 10^3/uL (0.8-4.8) 12/26/23 17:57 [place] # (Auto) 0.8 10^3/uL (0.2-0.9) 12/26/23 17:57 Eos # (Auto) 0.2 10^3/uL (0.0-0.8) 12/26/23 17:57 Baso # (Auto) 0.0 10^3/uL (0.0-0.1) 12/26/23 17:57 Nucleated RBC % (auto) 0 % 12/26/23 17:57 Nucleated RBCs # 0.0 /100WBC 12/26/23 17:57 Sodium 141 mmol/L (136-145) 12/26/23 17:57 Potassium 3.8 mmol/L (3.5-5.1) 12/26/23 17:57 Chloride 105 mmol/L (98-107) 12/26/23 17:57 Carbon Dioxide 27 mmol/L (22-29) 12/26/23 17:57 Anion Gap 12.8 (5-19) 12/26/23 17:57 BUN 11 mg/dL (6-20) 12/26/23 17:57 Creatinine 0.6 mg/dL (0.5-0.9) 12/26/23 17:57 GFR Calculation 114.4 mL/min (90-130) 12/26/23 17:57 Glucose 100 mg/dL (65-115) 12/26/23 17:57 Calculated Osmolality 291 mOsm/kg (285-295) 12/26/23 17:57 Calcium 9.2 mg/dL (8.5-10.5) 12/26/23 17:57 Total Bilirubin 0.2 mg/dL (0.15-1.2) 12/26/23 17:57 AST 10 U/L (0-32) 12/26/23 17:57 ALT 7 U/L (0-33) 12/26/23 17:57 Alkaline Phosphatase 71 U/L (35-105) 12/26/23 17:57 Total Protein 7.1 g/dL (6.6-8.7) 12/26/23 17:57 Albumin 4.2 g/dL (3.5-5.2) 12/26/23 17:57 Globulin 2.9 g/dL (1.3-4.6) 12/26/23 17:57 HCG, Qual Negative (Negative) 12/26/23 17:43 Urine Color Yellow (Yellow) 12/26/23 17:43 Urine Appearance Cloudy (CLEAR) A 12/26/23 17:43 Urine pH 5.5 (5-7) 12/26/23 17:43 Ur Specific [place] 1.018 (1.005-1.030) 12/26/23 17:43 Urine Protein Trace (Negative) A 12/26/23 17:43 Urine Glucose (UA) Negative (Normal) 12/26/23 17:43 Urine Ketones Negative (Negative) 12/26/23 17:43 Urine Blood Non-haemolysed trace (Negative) 12/26/23 17:43 Urine Nitrate Positive (Negative) A 12/26/23 17:43 Urine Bilirubin Negative (Negative) 12/26/23 17:43 Urine Urobilinogen 1.0 mg/dL (Negative) 12/26/23 17:43 Ur Leukocyte Esterase 2+ (Negative) A 12/26/23 17:43 Urine RBC 0-2 /hpf (0-2) 12/26/23 17:43 Urine WBC >100 /hpf (0-5) H 12/26/23 17:43 Ur Squamous Epith Cells 0-5 /hpf (0-5) 12/26/23 17:43 Amorphous Sediment Not Reportable 12/26/23 17:43 Urine Bacteria 4+ /hpf (NONE) H 12/26/23 17:43 Hyaline Casts 0-4 /lpf H 12/26/23 17:43 No radiology studies performed this visit Discharge Plan Discharge Patient Disposition: Home Clinical Impression: Urinary tract infection Condition: Stable Prescriptions: New sulfamethoxazole-trimethoprim [Bactrim DS] 800-160 mg tablet 1 tab PO BID 7 Days Qty: 14 0RF ondansetron HCl 4 mg tablet 4 mg PO Q8H 5 Days Qty: 15 0RF phenazopyridine [Pyridium] 100 mg tablet 100 mg PO Q8H PRN (Reason: pain) 6 Days Qty: 10 0RF No Action diclofenac sodium 75 mg tablet,delayed release (DR/EC) 75 mg PO BID PRN (Reason: pain) Patient Comments: Pt states not taking this med Herbalife Total Control 1 tab PO DAILY PRN (Reason: UNKNOWN) Patient Comments: pt states not taking this med promethazine 25 mg tablet 25 mg PO Q6H PRN (Reason: nausea) Qty: 20 0RF Discharge Orders: Discharge ED (Routine); Ordered 12/26/23 Ordered By: Lucy Briggs Discharge Diet: Advance as tolerated Discharge Activity: Resume usual activity Patient Instructions: Urinary Tract Infection in Women (DC), Pain Management Activity Restrictions/Additional Instructions: Please take your antibiotics as prescribed Please use the Pyridium for bladder cramping Zofran as needed for nausea and vomiting. Please return to the emergency department for new concerning or worsening symptoms I want you to follow-up with your primary care doctor this week for recheck of todays symptoms. 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
[2023-12-26 18:44] LABS: Alanine Aminotransferase 7 U/L (0-33); Albumin Level 4.2 g/dL (3.5-5.2); Alkaline Phosphatase 71 U/L (35-105); Anion Gap 12.8 (5-19); Aspartate Amino Transferase 10 U/L (0-32); Blood Urea Nitrogen 11 mg/dL (6-20); Calcium 9.2 mg/dL (8.5-10.5); Carbon Dioxide 27 mmol/L (22-29); Chloride 105 mmol/L (98-107); Creatinine Clr Calc Pharmacy 120.5229; Globulin 2.9 g/dL (1.3-4.6); Glomerular Filtration Rate 114.4 mL/min (90-130); Glucose 100 mg/dL (65-115); Osmolality Calculated 291 mOsm/kg (285-295); Potassium 3.8 mmol/L (3.5-5.1); Sodium 141 mmol/L (136-145); Total Bilirubin 0.2 mg/dL (0.15-1.2); Total Protein 7.1 g/dL (6.6-8.7)
[2023-12-26 19:12] VITALS: BP 116/84; PULSE 68; RESP 16; O2SAT 96
== END 2023-12-26 19:12 | disposition home or self-care (01) ==
PROVIDERS: Emergency Provider Nurse Practitioner
DX: N39.0 Urinary tract infection, site not specified (principal)
CPT/HCPCS: 36415; 51798; 80053; 81001; 81025; 85025; 87077; 87086; 87186; 96374; 96375; 99284; J2270; J2405

== ENCOUNTER 2024-10-06 16:01 | Emergency (ER) | payer BC, MEDICAID, SELFPAY ==
--- OUTSIDE RECORDS SUMMARY | 2024-10-06 16:10 | XMS_ITS | Patient Health Record ---
Author Organization [facility] Address [address] [address] Care Team Providers Care I&C Tech Name Role Phone Devon Rogers Primary Care Provider Allergies Allergen (clinical drug ingredient) Drug/Non Drug Allergy documented on EMR Reaction Allergy Type Onset Date Status ampicillin Ampicillin Unknown Drug Allergy Activ e Reason For Referral No Information Medications Medication SIG (Take, Route, Frequency, Duration) Notes Start Date End Date Status Vyvanse 40 MG Capsule 1 capsule in the morning Orally Once a day; Duration: 30 days 09/09/2024 10/07/2024 Active Vilazodone HCl 20 MG Tablet 1 tablet with food Orally Once a day; Duration: 90 days Take one half tab for the first week. 03/06/2023 Active ALPRAZolam 0.25 MG Tablet 1 tablet Orally every six hours prn; Duration: 30 days 03/07/2024 Active Immunizations Vaccine Route Administration Date Status Comme nts Flucelvax Trivalent, Syringe 0.5 mL, PF Unknown 025 Refused Social History Tobacco Use: Social History Observation Description Date Details (start date - stop date) Never Smoker NA - NA Social History Depression Screening Social Info Question Answer Notes depression screening findings Findings Negative (0 -4) 06/06/24 PHQ-9 Little interest or p tariq in doing things Not at all Feeling down, depressed, or hopeless Not at all Trouble falling or staying asleep, or sleeping t oo much Not at all Feeling tired or having little energy Not at all Poor appetite or overeating Not at all Feeling bad about yourself, or that you are a failure, or have let yourself or your family down Not at all Trouble concentrating on thi ngs, such as reading the newspaper or watching television Not at all Moving or speaking so slowly that other people could have noticed. Or the opposite ? being so fidgety or restless that you have been moving around a lot more than usual Not at all Thoughts that you would be b amarjit off , or of hurting yourself in some way Not at all Total Score 0 Drugs/Alcohol: Social Info Question Answer Notes Alcohol Screen (Audit-C) Did you have a drink containing alcohol in the past year? Yes How often did you have a drink containing alcohol in the past year? Monthly or less (1 point) Points 1 Interpretation Negative Drugs Have you used drugs other than those for medical reasons in the past 12 months? Yes Marijuana? Yes Tobacco Use: Social Info Question Answer Notes Tobacco Control (Standard) Tobacco use: Nonsmoker Section Notes: Tob: 01/26/24 Dep: 01/26/24 Tob: 01/26/24 Dep: 01/26/24 Tob: 01/26/24 Dep: 01/26/24 Tob: 01/26/24 Dep: 01/26/24 CIME Dep/tob - 06/06/24 Tob: 01/26/24 Dep: 01/26/24 CIME Dep/tob - 06/06/24 Problems Problem Type SNOMED Code ICD Code Onset Dates Problem Status W/U Status Risk Notes Problem Generalized anxiety disorder (92346968) MAGAN (generalized anxiety disorder) (F41.1) Active confirmed Problem Attention deficit hyperactivity disorder (653164878) Attention deficit hyperactivity disorder (ADHD), predominantly hyperactive type (F90.1) Active confirmed Vital Signs Heart Rate 101 /min 08/10/2024 Temperature 98.6 degrees Fahrenheit 08/10/2024 Blood pressure diastolic 78 mm Hg 08/10/2024 Oximetry 97 % 08/10/2024 Height-cm 165.1 cm 08/10/2024 Weight-kg 58.97 kg 08/10/2024 Height 65 in 08/10/2024 Blood pressure systolic 113 mm Hg 08/10/2024 Weight 130 lbs 08/10/2024 BMI 21.63 kg/m2 08/10/2024 Encounters Encounter Location Date Provider Diagnosis [facility] [address] [place] [phone] 01/26/2024 Devon Rogers MAGAN (generalized anxiety disorder) F41.1 ; Attention deficit hyperactivity disorder (ADHD), predominantly hyperactive type F90.1 ; Depression screen Z13.31 and Body mass index [BMI] 21.0-21.9, adult Z68.21 [facility] [address] [place] [phone] 03/07/2024 Devon Rogers MAGAN (generalized anxiety disorder) F41.1 and Attention deficit hyperactivity disorder (ADHD), predominantly hyperactive type F90.1 [facility] [address] [place] [phone] 04/05/2024 Devon Rogers Attention deficit hyperactivity disorder (ADHD), predominantly hyperactive type F90.1 ; MAGAN (generalized anxiety disorder) F41.1 and Depression screen Z13.31 [facility] [address] [phone] 06/06/2024 Devon Rogers Attention deficit hyperactivity disorder (ADHD), predominantly hyperactive type F90.1 ; MAGAN (generalized anxiety disorder) F41.1 ; Depression screen Z13.31 ; Encounter for immunization Z23 and Immunization not carried out because of patient refusal Z28.21 [facility] [address] [phone] 08/10/2024 Devon Rogers Attention deficit hyperactivity disorder (ADHD), predominantly hyperactive type F90.1 and MAGAN (generalized anxiety disorder) F41.1 [facility] [address] [phone] 10/13/2023 Devon Rogers Attention deficit hyperactivity disorder (ADHD), predominantly hyperactive type F90.1 [facility] [address] [place] [address] 10/16/2023 Devon Rogers Attention deficit hyperactivity disorder (ADHD), predominantly hyperactive type F90.1 [facility] [address] [place] [phone] 11/09/2023 Devon Rogers Attention deficit hyperactivity disorder (ADHD), predominantly hyperactive type F90.1 [facility] [address] [place] [phone] 12/09/2023 Devon Rogers Attention deficit hyperactivity disorder (ADHD), predominantly hyperactive type F90.1 [facility] [address] [place] [address] 03/07/2024 [facility] [address] [place] [address] 05/02/2024 Devon Rogers [facility] [address] [place] [address] 05/31/2024 Devon Rogers [facility] [address] [place] [address] 07/05/2024 Devon Rogers [facility] [address] [place] [address] 09/07/2024 Devon Rogers Assessments Encounter Date Diagnosis (ICD Code) Assessment Notes Treatment Notes Treatment Clinical Notes Section Notes 10/13/2023 Attention deficit hyperactivity disorder (ADHD), predominantly hyperactive type (ICD-10 - F90.1) 10/16/2023 Attention deficit hyperactivity disorder (ADHD), predominantly hyperactive type (ICD-10 - F90.1) 11/09/2023 Attention deficit hyperactivity disorder (ADHD), predominantly hyperactive type (ICD-10 - F90.1) 12/09/2023 Attention deficit hyperactivity disorder (ADHD), predominantly hyperactive type (ICD-10 - F90.1) 01/26/2024 MAGAN (generalized anxiety disorder) (ICD-10 - F41.1) 01/26/2024 Attention deficit hyperactivity disorder (ADHD), predominantly hyperactive type (ICD-10 - F90.1) 03/07/2024 MAGAN (generalized anxiety disorder) (ICD-10 - F41.1) 03/07/2024 Attention deficit hyperactivity disorder (ADHD), predominantly hyperactive type (ICD-10 - F90.1) 04/05/2024 Attention deficit hyperactivity disorder (ADHD), predominantly hyperactive type (ICD-10 - F90.1) 06/06/2024 Attention deficit hyperactivity disorder (ADHD), predominantly hyperactive type (ICD-10 - F90.1) 08/10/2024 Attention deficit hyperactivity disorder (ADHD), predominantly hyperactive type (ICD-10 - F90.1) All patient's questions are encouraged and addressed to their apparent satisfaction. They are agreeable with the proposed plan of care and deny further needs or concerns. Patient is advised to take medications as prescribed. Patient agrees to contact the clinic with any new, worsening or increase of symptons. I am happy to see patient prior to next office visit as needed for acute concerns. 08/10/2024 MAGAN (generalized anxiety disorder) (ICD-10 - F41.1) 06/06/2024 MAGAN (generalized anxiety disorder) (ICD-10 - F41.1) She has failed the escitalopram 04/05/2024 MAGAN (generalized anxiety disorder) (ICD-10 - F41.1) 01/26/2024 Depression screen (ICD-10 - Z13.31) 01/26/2024 Body mass index [BMI] 21.0-21.9, adult (ICD-10 - Z68.21) 04/05/2024 Depression screen (ICD-10 - Z13.31) 06/06/2024 Depression screen (ICD-10 - Z13.31) 06/06/2024 Encounter for immunization (ICD-10 - Z23) 06/06/2024 Immunization not carried out because of patient refusal (ICD-10 - Z28.21) Plan Of Treatment Next Appt Details Provider Name:Devon Rogers, 11/11/2024 08:40:00 AM, [address] [place] [address], [phone], Insurance Providers Payer Name Payer Address Payer Phone Subscriber Number Group Number Insured Name Patient Relationship to Insured Coverage Start Date Coverage End Date Healthy [facility] Medicaid Replacement [address] [address] [place] [phone] [id number] MANASA ARIEL Self - patient is the insured Medical (General) History Medical History History ICD Code diverticulosis ADHD anxiety Hospitalization History Reason Date(Month/Year) c - section x 2
[2024-10-06 16:33] VITALS: BP 108/79; PULSE 114; RESP 18; TEMP 36.8; O2SAT 97; BMI 21.6
[2024-10-06 19:27] VITALS: BP 121/85
[2024-10-06 19:40] VITALS: BP 108/81; O2SAT 100
--- NOTE | 2024-10-06 20:00 | W.ED.SKABFB ---
HPI - Skin/Abscess/Foreign Bdy General: Chief complaint: Skin/Abscess/Foreign Body Stated complaint: swollen painful knot inside groin area Time Seen by Provider: 10/06/24 19:41 History of Present Illness: 34-year-old female with no significant past medical history presents emergency room with right labial pain and swelling. Says she felt did not come up there that was kind of hard initially and now she has some swelling around it. It is painful to touch. Not red. No vaginal discharge. Related Data Home Medications ?Medication ?Instructions ?Recorded ?Confirmed Herbalife Total Control 1 tab PO DAILY PRN UNKNOWN 11/26/20 diclofenac sodium 75 mg 75 mg PO BID PRN pain 11/26/20 tablet,delayed release Previous Rx's ?Medication ?Instructions ?Recorded promethazine 25 mg tablet 25 mg PO Q6H PRN nausea #20 tabs 04/13/22 hydrocodone 5 mg-acetaminophen 325 1 tab PO Q6H PRN pain #20 tabs 10/06/24 mg tablet polyethylene glycol 3350 17 17 g PO DAILY #510 grams 10/06/24 gram/dose oral powder (Miralax) sulfamethoxazole 800 2 tab PO BID 10 days #40 tabs 10/06/24 mg-trimethoprim 160 mg tablet (Bactrim DS) Allergies Allergy/AdvReac Type Severity Reaction Status Date / Time ampicillin Allergy ALGY-Rash Verified 12/26/23 17:22 Review of Systems Narrative: Constitutional symptoms: Negative except as documented in HPI. Skin symptoms: Negative except as documented in HPI. Eye symptoms: Negative except as documented in HPI. ENMT symptoms: Negative except as documented in HPI. Respiratory symptoms: Negative except as documented in HPI. Cardiovascular symptoms: Negative except as documented in HPI. Gastrointestinal symptoms: Negative except as documented in HPI. Genitourinary symptoms: Negative except as documented in HPI. Musculoskeletal symptoms: Negative except as documented in HPI. Neurologic symptoms: Negative except as documented in HPI. Psychiatric symptoms: Negative except as documented in HPI. Endocrine symptoms: Negative except as documented in HPI. [facility] ED PFSH: Medical History (Updated 10/06/24 @ 20:51 by Bina Adler MD) History of ADHD Generalized anxiety disorder Family History Father Hypertension Social History Smoking and tobacco/nicotine status: never used tobacco/nicotine Alcohol intake: current Alcohol intake frequency: holidays/special occasions only Alcohol type: wine Substance/Drug Use: current Substance/Drug use frequency: daily Physical Exam Narrative: EXAM NARRATIVE: General: Alert, no acute distress. Skin: warm and dry Head: Normocephalic Neck: Trachea midline Eye: Extraocular movements are intact. Ears, nose, mouth and throat: Oral mucosa moist Respiratory: Respirations are non-labored Musculoskeletal: Normal ROM Gastrointestinal: Abdomen does not appear distended Genitourinary: Right lower labia has some swelling. No overlying warmth or erythema. Tender to palpation. Neurological: Alert and oriented, No focal neurological deficit observed. Psychiatric: Cooperative, appropriate mood & affect. Course Vital Signs: Vital signs: Vital Signs Temperature 98.2 F 10/06/24 16:33 Pulse Rate 114 H 10/06/24 16:33 Respiratory Rate 18 10/06/24 16:33 Blood Pressure 109/70 10/06/24 20:22 Pulse Oximetry 98 10/06/24 20:22 Oxygen Delivery Me thod Room Air 10/06/24 20:22 MDM - Skin/Abscess/Foreign Bdy Medicial Decision Making Incision and drainage. Time: 2034 Confirmed patient, procedure, side, and site. Time out performed prior to procedure. Consent was obtained by patient and/or responsible constitution party. Indication: Possible abscess Pre procedure: Circulation, motor, sensory intact Location: Right lower labia Anesthesia: 1% lidocaine with epinephrine Approximate 18-gauge to probe and attempt aspiration with no fluid. Post procedure examination: Circulation, motor, sensory intact. Patient tolerated the procedure well. No complications. Total time 10 min. Pt advised to keep the area clean and dry, wash twice per day with antibacterial soap and water. Take antibiotics as prescribed. Consultation: I spoke with Dr. Lu who is on-call for gynecology. He agrees with antibiotics for 10 days and warm compresses. He will follow with the patient in clinic. Assessment and plan: Vaginal swelling, possible cellulitis or abscess ?P.o. Jackson, p.o. Bactrim. - Discharged home - Discussed plan with patient. Answered any questions. - Evaluation and treatment of this problem were appropriate in the emergency setting. No radiology studies performed this visit Discharge Plan Discharge Patient Disposition: Home Clinical Impression: Labial swelling Condition: Stable Prescriptions: New hydrocodone-acetaminophen 5-325 mg tablet 1 tab PO Q6H PRN (Reason: pain) Qty: 20 0RF sulfamethoxazole-trimethoprim [Bactrim DS] 800-160 mg tablet 2 tab PO BID 10 Days Qty: 40 0RF polyethylene glycol 3350 [Miralax] 17 gram/dose powder 17 g PO DAILY Qty: 510 0RF Rx Instructions: Take 1 scoop daily while taking pain medications. No Action diclofenac sodium 75 mg tablet,delayed release (DR/EC) 75 mg PO BID PRN (Reason: pain) Patient Comments: Pt states not taking this med Herbalife Total Control 1 tab PO DAILY PRN (Reason: UNKNOWN) Patient Comments: pt states not taking this med promethazine 25 mg tablet 25 mg PO Q6H PRN (Reason: nausea) Qty: 20 0RF Discharge Orders: Discharge ED (Routine); Ordered 10/06/24 Ordered By: Bina Adler Referrals: Gilbert Rogers MD [Primary Care Provider, Internal Medicine] Jeronimo Lu MD [Physician, FIELD SERVICE CONSULTANT] Referral Note: Please call for an appointment tomorrow morning. Hopefully can see you tomorrow afternoon or early next week. Return to the emergency room if symptoms worsen as we discussed Discharge Diet: Usual diet Discharge Activity: Increase activity as tolerated Patient Instructions: Opioid Safety, Pain Management, Patient Portal & [place] Instructions Activity Restrictions/Additional Instructions: Thank you for choosing [facility] for your healthcare needs today. You have been screened and evaluated and felt safe for discharge. Health conditions do change or evolve sometimes and as such it is important that you follow up with your Primary Doctor to be re checked, 3-5 days is a general good time frame for follow up. You are always welcome to return to the ED for re assessment if your symptoms are worsening or you have new concerns Print Language: Occitan Coding Level of Care Code ED Line Leader for Jt Allison
[2024-10-06] MEDS: lidocaine-epi 1% 20 mL INJ INJECTION (20:18)
[2024-10-06] MEDS: HYDROcodone-acetaminophen 10-325 mg Tablet 1 TAB PO (20:19)
[2024-10-06 20:22] VITALS: BP 109/70; O2SAT 98
[2024-10-06] MEDS: HYDROcodone-acetaminophen 5-325 mg Tablet 2 TAB PO (21:14)
[2024-10-06] MEDS: sulfamethoxazole-trimeth DS 160-800 mg Tablet 2 TAB PO (21:14)
[2024-10-06 21:17] VITALS: BP 108/74; PULSE 78; RESP 18; O2SAT 99
== END 2024-10-06 21:18 | disposition home or self-care (01) ==
PROVIDERS: Emergency Provider Emergency Medicine; PCP Internal Medicine
DX: N76.89 Other specified inflammation of vagina and vulva (principal)
CPT/HCPCS: 99283; J9999

== ENCOUNTER → 2024-11-09 09:43 | Outpatient (BNVA) | payer BC, MEDICAID, SELFPAY | PROVIDERS: PCP Internal Medicine; Visit Provider Obstetrics & Gynecology | DX: N75.1 Abscess of Bartholin's gland (principal) | CPT/HCPCS: 87491; 87591; 87661 ==